=== PATIENT | female | born 1980 | race Caucasian/White ===

== ENCOUNTER 2018-12-16 05:27 | Emergency (ER) | payer BC, SELFPAY ==
[2018-12-16] MEDS ORDERED: MORPHINE 4 MG/ML SYR ONE ×2 (07:00→09:14)
[2018-12-16] MEDS ORDERED: PROMETHAZINE 25 MG/ML VIAL ONE (07:06)
[2018-12-16 07:16] LABS: Absolute Lymphocytes (CBC) 1.7 K/uL (0.7-4.9); Basophils % 0.8 % (0-1.3); Eosinophils % 3.4 % (0-4.4); Hematocrit 38.7 % (36.0-45.0); Lymphocytes % 27.9 % (15.3-44.8); MPV 8.3 fL (7.6-11.3); Monocytes % 7.6 % (3.3-12.3); RBC Red Blood Cell Count 3.96 M/uL (3.86-4.86)
--- NOTE | 2018-12-16 07:24 | RAD REPORT ---
EXAM DESCRIPTION: US - Abdomen Exam Limited - 12/16/2018 7:11 am CLINICAL HISTORY: Abdominal pain COMPARISON: Ultrasound February 2012 FINDINGS: No gallstones, sludge or other abnormalities within the gallbladder lumen. There is no wal l thickening or pericholecystic fluid. No common duct stone or biliary tree dilatation identified. IMPRESSION: Normal gallbladder and biliary tree ultrasound.
[2018-12-16 07:28] LABS: Urine Blood NEGATIVE (NEG); Urine Glucose NEGATIVE (NEG); Urine Protein NEGATIVE (NEG); Urine Specific Gravity <1.005 (1.005-1.030)
[2018-12-16 07:48] LABS: ALT/SGPT 68 U/L (12-78); AST/SGOT 239 U/L (15-37); Albumin 3.3 g/dL (3.4-5.0); Alkaline Phosphatase 199 U/L (45-117); BUN Blood Urea Nitrogen 7 mg/dL (7-18); Bicarbonate 22 mmol/L (21-32); Bilirubin Direct 0.3 mg/dL (0-0.2); Bilirubin Total 0.8 mg/dL (0.2-1.0); Glucose Level 139 mg/dL (74-106); Lipase 901 U/L (73-393); Potassium 3.7 mmol/L (3.5-5.1); Protein, Total 6.8 g/dL (6.4-8.2); Sodium Level 136 mmol/L (136-145)
--- NOTE | 2018-12-16 09:46 | RAD REPORT ---
EXAM DESCRIPTION: CT - Abdomen Pelvis Wo Contrast - 12/16/2018 9:23 am CLINICAL HISTORY: Right-sided abdominal pain COMPARISON: Abdomen ultrasound same date TECHNIQUE: Axial [address] imaging of the abdomen and pelvis was performed without IV contrast. No IV contrast was given because of allergy, abnormal renal function, patient refusal or physician re quest. No oral contrast administered. All CT scans are performed using dose optimization technique as appropriate and may include automated exposure control or mA/KV adjustment according to patient size. FINDINGS: No suspicious findings in the lung bases. Mild hepatomegaly is present. Overall liver parenchymal attenuation is decreased relative to the sple en. There are geographic areas of even greater diminished attenuation. Pattern favors geographic fatt y infiltration with varying degrees of fatty infiltration. Full assessment is limited in the absence of contrast. No splenomegaly or focal splenic finding. Body and tail of the pancreas are normal and w ithout focal mass. There is a general fullness in the head of the pancreas with stranding and edema a djacent to the pancreatic head and adjacent to the duodenal C-loop. Gilbert of the duodenum are promine nt. Stranding and minimal fluid continue inferiorly along the anterior pararenal fascia. Gallbladder and biliary tree are also without suspicious finding. No hydronephrosis or suspicious renal mass. No significant adrenal finding. Isodense renal masses an d pyelonephritis cannot be excluded in the absence of IV contrast. The urinary bladder is without sig nificant finding. Uterus and ovaries show no suspicious findings. No gastric dilatation or gastric wall thickening. Jejunum and ileum show no acute findings. No acute colon process. No free air or pneumatosis. No other site of inflammatory stranding. No hernia, mass o r bulky lymphadenopathy. No suspicious bony findings. IMPRESSION: Edematous/inflammatory stranding involving the duodenal C-loop and head of the pancreas. No abscess, mass or surgically emergent finding. Findings may reflect pancreatitis or a duodenitis/duodenal ulcer disease. Correlation can be made wit h any clinical or laboratory findings for pancreatitis. Liver is prominent in size and there is a heterogeneous attenuation pattern that is probably a geogra phic pattern of varying degrees of fatty infiltration. However, in the absence of contrast, mass lesi on or abnormal enhancement patterns cannot be assessed. Full assessment is limited is the absence of IV contrast.
[2018-12-16] MEDS ORDERED: CIPROFLOXACIN 400mg IV 400 MG/200 ML BAG IV ONE (10:22)
[2018-12-16] MEDS ORDERED: METRONIDAZOLE 500mg IVPB 500 MG/100 ML BAG IV ONE (10:22)
[2018-12-16] MEDS ORDERED: NA CHLORIDE 0.9% 500 ML ONE (10:22)
--- NOTE | 2018-12-16 10:55 | ER ---
Nurse's Notes [facility] Name: Ava Alcantara Age: 38 yrs Sex: Female : 1980 Arrival Date: 12/16/2018 Time: 05:29 Bed 19 Private MD: Diagnosis: Acute pancreatitis;Duodenitis Presentation: 12/16 05:40 Presenting complaint: Patient states: "Intermittent right sided abdominal pain since a cc3 couple of days now. I also feel nauseated". Transition of care: patient was not received from another setting of care. Onset of symptoms is unknown. Risk Assessment: Do you want to hurt yourself or someone else? Patient reports no desire to harm self or others. Initial Sepsis Screen: Does the patient meet any 2 criteria? No. Patient's initial sepsis screen is negative. Does the patient have a suspected source of infection? Yes: Acute abdominal pain. Care prior to arrival: Medication(s) given: Ibuprofen at 0400H this morning. 05:40 Method Of Arrival: Ambulatory cc3 05:40 Acuity: MEL 3 cc3 Triage Assessment: 05:40 General: Appears in no apparent distress. uncomfortable, Behavior is calm, cooperative, cc3 appropriate for age. Pain: Complains of pain in right side abdomen Pain currently is 7 out of 10 on a pain scale. Quality of pain is described as aching. EENT: No signs and/or symptoms were reported regarding the EENT system. Neuro: Level of Consciousness is awake, alert, obeys commands, Oriented to person, place, time, situation, Appropriate for age. Cardiovascular: Denies chest pain, Capillary refill < 3 seconds Patient's skin is warm and dry. Respiratory: Airway is patent Respiratory effort is even, unlabored, Respiratory pattern is regular, symmetrical. GI: Abdomen is round non-distended. : No signs and/or symptoms were reported regarding the genitourinary system. Derm: Skin is intact, is healthy with good turgor, Skin is pink, warm \\T\\ dry. normal, noticed redness all over her face. Musculoskeletal: Circulation, motion, and sensation intact. Range of motion: intact in all extremities. 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 - Social history:: Smoking status: Patient uses tobacco products, smokes one-half pack cigarettes per day. - Ebola Screening: : No symptoms or risks identified at this time. Screenin:40 Abuse screen: Denies threats or abuse. Denies injuries from another. Nutritional cc3 screening: No deficits noted. Tuberculosis screening: No symptoms or risk factors identified. Fall Risk Ambulatory Aid- None/Bed Rest/Nurse Assist (0 pts). Gait- Normal/Bed Rest/Wheelchair (0 pts) Mental Status- Oriented to own ability (0 pts). Assessment: 05:40 General: see triage assessment. cc3 06:30 Reassessment: Patient appears in no apparent distress at this time. Patient and/or cc3 family updated on plan of care and expected duration. Pain level reassessed. Patient is alert, oriented x 3, equal unlabored respirations, skin warm/dry/pink. 07:00 Reassessment: Patient appears in no apparent distress at this time. Patient and/or cc3 family updated on plan of care and expected duration. Pain level reassessed. Patient is alert, oriented x 3, equal unlabored respirations, skin warm/dry/pink. Ultrasound being done by the plant health care technician at bedside. 07:00 Reassessment: RECD REPORT FROM NGUYEN LAWRENCE. 38YO WF P/W ABDOMINAL PAIN. U/S AT B/S AT bp THIS TIME. 07:13 Reassessment: U/S COMPLETED, RESULTS PENDING. bp 09:10 Reassessment: PT TO CT. bp 10:12 Reassessment: DISPO ON HOLD FOR IV ABX INFUSION. bp 10:56 Reassessment: D/C ON HOLD FOR ABX COMPLETION. bp 12:28 Reassessment: PT D/C HOME AMBULATORY WITH FAMILY, DX WITH PANCREATITIS AND DUODENITIS. bp 12:30 GI: Bowel sounds present X 4 quads. Abd is soft X 4 quads Abdomen is tender to bp palpation in right upper quadrant. Vital Signs: 05:40 BP 174 / 124; Pulse 98; Resp 19 S; Temp 98.6(O); Pulse Ox 100% on R/A; Weight 88.45 kg cc3 (R); Height 5 ft. 2 in. (157.48 cm) (R); Pain 7/10; 06:09 BP 147 / 102; Pulse 92; Resp 18 S; Pulse Ox 100% on R/A; cc3 07:00 BP 138 / 105; Pulse 85; Resp 16; Pulse Ox 100% ; bp 08:14 BP 156 / 106; Pulse 83; Resp 16; Pulse Ox 100% ; bp 10:03 BP 160 / 119; Pulse 81; Resp 16; Pulse Ox 99% ; bp 12:28 BP 161 / 103; Pulse 67; Resp 16; Temp 98; Pulse Ox 100% ; bp 05:40 Body Mass Index 35.67 (88.45 kg, 157.48 cm) cc3 ED Course: 05:29 Patient arrived in ED. ds1 05:40 Arm band placed on right wrist. Patient notified of wait time. cc3 05:40 Patient has correct armband on for positive identification. Bed in low position. Call cc3 light in reach. Side rails up X 1. Pulse ox on. NIBP on. 05:44 Nguyen Lopez is Primary Nurse. cc3 05:51 Triage completed. cc3 06:05 Garo Brizuela PA is PHCP. jr8 06:05 Rad Liz MD is Attending Physician. jr8 07:00 Report given to HOWARD Lam. cc3 07:00 Inserted saline lock: 20 gauge in left antecubital area, using aseptic technique. Blood cc3 collected. 07:04 US Abdomen Limited In Process Unspecified. EDMS 07:09 Genaro Fernandez, RN is Primary Nurse. bp 09:24 CT Abd/Pelvis - Without Contrast In Process Unspecified. EDMS 10:54 Rodri Fabian MD is Referral Physician. jr8 12:28 No provider procedures requiring assistance completed. IV discontinued, intact, bp bleeding controlled, No redness/swelling at site. Pressure dressing applied. Administered Medications: 06:47 CANCELLED (Other Intervention Used): Zofran 4 mg IVP once; over 2 minutes cc3 07:00 Drug: morphine 4 mg Route: IVP; Site: left antecubital; cc3 08:55 Follow up: Response: Nausea is decreased bp 07:05 Drug: Phenergan 12.5 mg Route: IVP; Site: left antecubital; cc3 08:55 Follow up: Response: Nausea is decreased bp 09:01 Drug: morphine 4 mg Route: IVP; Site: right antecubital; bp 09:59 Follow up: Response: Pain is decreased bp 10:05 Drug: Flagyl 500 mg Volume: 100 ml; Route: IVPB; Rate: 200 ml/hr; Infused Over: 30 bp mins; Site: left antecubital; 10:55 Follow up: IV Status: Completed infusion bp 10:56 Drug: Cipro 400 mg Volume: 200 ml; Route: IVPB; Infused Over: 60 mins; Site: left bp antecubital; 12:29 Follow up: IV Status: Completed infusion; IV Intake: 200ml bp 11:13 Drug: Loraine (7.5 mg-325 mg) 1 tabs Route: PO; bp 12:29 Follow up: Response: No adverse reaction bp Intake: 12:29 IV: 200ml; Total: 200ml. bp Outcome: 10:55 Discharge ordered by MD. nesbitt 12:30 Discharged to home ambulatory, with family. bp 12:30 Condition: stable 12:30 Discharge instructions given to patient, Instructed on discharge instructions, follow up and referral plans. medication usage, Demonstrated understanding of instructions, follow-up care, medications, Prescriptions given X 4. 12:31 Patient left the ED. bp Signatures: Dispatcher [employer] EDNH Piper Vicente ds1 Garo Brizuela PA PA jr8 Genaro Fernandez, HOWARD RN bp Nguyen Lopez cc3
--- NOTE | 2018-12-16 10:55 | EDPHYS ---
Physician Documentation [facility] Name: Ava Alcantara Age: 38 yrs Sex: Female : 1980 Arrival Date: 12/16/2018 Time: 05:29 Bed 19 Private MD: ED Physician Rad Liz HPI: 12/16 06:45 This 38 yrs old Female presents to ER via Ambulatory with complaints of jr8 Abdominal Pain. 06:45 The patient presents with abdominal pain in the right upper quadrant. Onset: The jr8 symptoms/episode began/occurred gradually, 5 day(s) ago, and became worse today, yesterday. The symptoms radiate to abdomen. Associated signs and symptoms: Pertinent positives: nausea, Pertinent negatives: anorexia, blood in stools, chest pain, constipation, diarrhea, dysuria, fever, hematuria, vaginal discharge, vomiting. The symptoms are described as crampy, waxing/waning. Modifying factors: The symptoms are alleviated by nothing, the symptoms are aggravated by movement, pressure. Severity of pain: At its worst the pain was moderate in the emergency department the pain is actually worse is a 8 / 10. The patient has not experienced similar symptoms in the past. The patient has not recently seen a physician. RUQ abd pain x 5 days, worse x 2 days. Was relieved by ibuprofen previously but not yesterday/today. 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 - Social history:: Smoking status: Patient uses tobacco products, smokes one-half pack cigarettes per day. - Ebola Screening: : No symptoms or risks identified at this time. ROS: 06:45 Constitutional: Negative for fever, chills, and weight loss, Eyes: Negative for injury, jr8 pain, redness, and discharge, ENT: Negative for injury, pain, and discharge, Neck: Negative for injury, pain, and swelling, Cardiovascular: Negative for chest pain, palpitations, and edema, Respiratory: Negative for shortness of breath, cough, wheezing, and pleuritic chest pain, Back: Negative for injury and pain, : Negative for injury, bleeding, discharge, and swelling, MS/Extremity: Negative for injury and deformity, Skin: Negative for injury, rash, and discoloration, Neuro: Negative for headache, weakness, numbness, tingling, and seizure. 06:45 Abdomen/GI: Positive for abdominal pain, nausea, Negative for vomiting, diarrhea, constipation, anorexia, rectal pain, rectal bleeding. Exam: 06:45 Constitutional: This is a well developed, well nourished patient who is awake, alert, jr8 and in no acute distress. Head/Face: Normocephalic, atraumatic. Eyes: Pupils equal round and reactive to light, extra-ocular motions intact. Lids and lashes normal. Conjunctiva and sclera are non-icteric and not injected. Cornea within normal limits. Periorbital areas with no swelling, redness, or edema. Neck: Trachea midline, no thyromegaly or masses palpated, and no cervical lymphadenopathy. Supple, full range of motion without nuchal rigidity, or vertebral point tenderness. No Meningismus. Cardiovascular: Regular rate and rhythm with a normal S1 and S2. No gallops, murmurs, or rubs. Normal PMI, no JVD. No pulse deficits. Respiratory: Lungs have equal breath sounds bilaterally, clear to auscultation and percussion. No rales, rhonchi or wheezes noted. No increased work of breathing, no retractions or nasal flaring. Back: No spinal tenderness. No costovertebral tenderness. Full range of motion. Skin: Warm, dry with normal turgor. Normal color with no rashes, no lesions, and no evidence of cellulitis. MS/ Extremity: Pulses equal, no cyanosis. Neurovascular intact. Full, normal range of motion. Neuro: Awake and alert, GCS 15, oriented to person, place, time, and situation. Cranial nerves II-XII grossly intact. Motor strength 5/5 in all extremities. Sensory grossly intact. Cerebellar exam normal. Normal gait. 06:45 Abdomen/GI: Exam negative for guarding, Inspection: abdomen appears normal, obese Bowel sounds: normal, in all quadrants, Palpation: soft, moderate abdominal tenderness, in the right upper quadrant, no appreciated organomegaly, Indicators: Alvarado's sign is negative. Vital Signs: 05:40 BP 174 / 124; Pulse 98; Resp 19 S; Temp 98.6(O); Pulse Ox 100% on R/A; Weight 88.45 kg cc3 (R); Height 5 ft. 2 in. (157.48 cm) (R); Pain 7/10; 06:09 BP 147 / 102; Pulse 92; Resp 18 S; Pulse Ox 100% on R/A; cc3 07:00 BP 138 / 105; Pulse 85; Resp 16; Pulse Ox 100% ; bp 08:14 BP 156 / 106; Pulse 83; Resp 16; Pulse Ox 100% ; bp 10:03 BP 160 / 119; Pulse 81; Resp 16; Pulse Ox 99% ; bp 12:28 BP 161 / 103; Pulse 67; Resp 16; Temp 98; Pulse Ox 100% ; bp 05:40 Body Mass Index 35.67 (88.45 kg, 157.48 cm) cc3 MDM: 06:06 Patient medically screened. jr8 10:02 Data reviewed: vital signs, nurses notes, lab test result(s), radiologic studies, CT jr8 scan, ultrasound. Data interpreted: Pulse oximetry: on room air is 100 %. Interpretation: normal. Counseling: I had a detailed discussion with the patient and/or guardian regarding: the historical points, exam findings, and any diagnostic results supporting the discharge/admit diagnosis, lab results, radiology results, the need for outpatient follow up, a family practitioner, a wrapper selector, to return to the emergency department if symptoms worsen or persist or if there are any questions or concerns that arise at home. ED course: Reviewed labs and imaging with patient and family. Explained to them that patient has duodenitis and pancreatitis. Patient has never had either in the past. Recommend admission for IV fluids, antibiotics, and pain management to insure condition does not worsen. Patient stated that she wants to try home medication first and refuses to be admitted. Explained to patient that she runs the risk of perforation or worsening of infection/inflammation. Patient understands that but still wants to try outpatient therapy first. Family tried to convince patient to stay as well but still wants to go home. Patient knows to return if worse. 12/16 06:33 Order name: Basic Metabolic Panel 12/16 06:33 Order name: CBC with Diff 12/16 06:33 Order name: Creatinine for Radiology; Complete Time: 07:41 12/16 06:33 Order name: Hepatic Function; Complete Time: 08:40 12/16 06:33 Order name: Lipase; Complete Time: 08:40 12/16 06:33 Order name: Test, Serum; Complete Time: 08:40 12/16 06:33 Order name: US Abdomen Limited; Complete Time: 07:28 12/16 06:34 Order name: Basic Metabolic Panel; Complete Time: 08:40 EDMS 12/16 06:34 Order name: CBC with Automated Diff; Complete Time: 07:28 EDMS 12/16 06:34 Order name: Urine Dipstick--Ancillary (enter results); Complete Time: 07:28 ak5 12/16 08:49 Order name: CT Abd/Pelvis - Without Contrast; Complete Time: 09:53 12/16 06:33 Order name: IV Saline Lock; Complete Time: 07:08 12/16 06:33 Order name: Labs collected and sent; Complete Time: 07:08 Administered Medications: 06:47 CANCELLED (Other Intervention Used): Zofran 4 mg IVP once; over 2 minutes cc3 07:00 Drug: morphine 4 mg Route: IVP; Site: left antecubital; cc3 08:55 Follow up: Response: Nausea is decreased bp 07:05 Drug: Phenergan 12.5 mg Route: IVP; Site: left antecubital; cc3 08:55 Follow up: Response: Nausea is decreased bp 09:01 Drug: morphine 4 mg Route: IVP; Site: right antecubital; bp 09:59 Follow up: Response: Pain is decreased bp 10:05 Drug: Flagyl 500 mg Volume: 100 ml; Route: IVPB; Rate: 200 ml/hr; Infused Over: 30 bp mins; Site: left antecubital; 10:55 Follow up: IV Status: Completed infusion bp 10:56 Drug: Cipro 400 mg Volume: 200 ml; Route: IVPB; Infused Over: 60 mins; Site: left bp antecubital; 12:29 Follow up: IV Status: Completed infusion; IV Intake: 200ml bp 11:13 Drug: [place] (7.5 mg-325 mg) 1 tabs Route: PO; bp 12:29 Follow up: Response: No adverse reaction bp Disposition: 22:22 Co-signature as Attending Physician, Rad Liz MD Available for consultation at ps1 all times. . Disposition: 12/16/18 10:55 Discharged to Home. Impression: Acute pancreatitis, Duodenitis. - Condition is Stable. - Discharge Instructions: Acute Pancreatitis, Duodenitis. - Prescriptions for Cipro 500 mg Oral Tablet - take 1 tablet by ORAL route every 12 hours for 10 days; 20 tablet. Flagyl 500 mg Oral Tablet - take 1 tablet by ORAL route every 6 hours for 10 days; 40 tablet. Tylenol- Codeine #3 300-30 mg Oral Tablet - take 2 tablets by ORAL route every 6 hours As needed; 20 tablet. Zofran ODT 4 mg Oral tablet,disintegrating - place 1 tablet by TRANSLINGUAL route every 6 hours As needed; 12 tablet. - Medication Reconciliation Form, Thank You Letter, Antibiotic Education, Prescription Opioid Use form. - Follow up: Rodri Fabian MD; When: 1 week; Reason: Recheck today's complaints, Continuance of care, Re-evaluation by your physician. - Problem is new. - Symptoms have improved. Signatures: Dispatcher [employer] EDMS Garo Brizuela PA PA jr8 Genaro Fernandez, RN RN bp Rad Liz MD MD ps1 Nguyen Lopez cc3 Corrections: (The following items were deleted from the chart) 06:47 06:34 Zofran 4 mg IVP once; over 2 minutes ordered. jr8 cc3 06:47 06:46 Zofran 4 mg IVP once; over 2 minutes ordered. cc3 cc3 12:31 10:55 12/16/2018 10:55 Discharged to Home. Impression: Acute pancreatitis; Duodenitis. bp Condition is Stable. Forms are Medication Reconciliation Form, Thank You Letter, Antibiotic Education, Prescription Opioid Use. Follow up: Rodri Fabian; When: 1 week; Reason: Recheck today's complaints, Continuance of care, Re-evaluation by your physician. Problem is new. Symptoms have improved. jr8
[2018-12-16] MEDS ORDERED: HYDROCODONE/APAP 7.5/325 MG TAB ONE (11:28)
[2018-12-16 13:36] VITALS: BP 132/72; TEMP 97.8; O2SAT 98
== END 2018-12-16 12:31 | disposition home or self-care (01) ==
LOC: ER 05:27
DX: K85.90 Acute pancreatitis without necrosis or infection, unspecified (principal); K29.80 Duodenitis without bleeding; F17.210 Nicotine dependence, cigarettes, uncomplicated; I10 Essential (primary) hypertension; Z88.1 Allergy status to other antibiotic agents; Z91.048 Other nonmedicinal substance allergy status
CPT/HCPCS: 36415; 74176; 76705; 80048; 80076; 81003; 83690; 84703; 85025; 99284; J0744; J2550

== ENCOUNTER 2018-12-16 19:38 | Inpatient (IN) | payer SELFPAY ==
--- NOTE | 2018-12-16 20:28 | RAD REPORT ---
EXAM DESCRIPTION: RAD - Chest Single View - 12/16/2018 8:19 pm CLINICAL HISTORY: DYSPNEA Chest pain. COMPARISON: <Comparisons> FINDINGS: Portable technique limits examination quality. The lungs are grossly clear. The heart is normal in size. No displaced fractures. IMPRESSION: No acute intrathoracic process suspected.
[2018-12-16] MEDS ORDERED: ONDANSETRON 4 MG/2 ML VIAL ONE (20:46)
[2018-12-16] MEDS ORDERED: NA CHLORIDE 0.9% 2,000 ML ONE (20:46)
[2018-12-16] MEDS ORDERED: MEPERIDINE HCL 50 MG/ML AMP ONE (20:46)
[2018-12-16 20:47] LABS: Absolute Lymphocytes (CBC) 1.1 K/uL (0.7-4.9); Basophils % 0.7 % (0-1.3); Hematocrit 47.8 % (36.0-45.0); Lymphocytes % 11.3 % (15.3-44.8); MPV 8.1 fL (7.6-11.3); RBC Red Blood Cell Count 4.75 M/uL (3.86-4.86)
[2018-12-16 21:03] LABS: Albumin 3.4 g/dL (3.4-5.0); Bilirubin Total 2.8 mg/dL (0.2-1.0); Potassium 3.8 mmol/L (3.5-5.1); Protein, Total 7.5 g/dL (6.4-8.2)
--- NOTE | 2018-12-16 22:02 | ER ---
Nurse's Notes [facility] Name: Ava Alcantara Age: 38 yrs Sex: Female : 1980 Arrival Date: 12/16/2018 Time: 19:39 Bed 8 Private MD: Diagnosis: Acute pancreatitis. Worsening abdominal pain Presentation: 12/16 19:54 Presenting complaint: Patient states: Seen here this morning for same complaint. Pt tl2 states that she was told to come back if pain got worse. Pt states pain in entire abdomen and back and vomiting. Took two [place] at 1600 today. Transition of care: patient was not received from another setting of care. Onset of symptoms was December 16, 2018. Risk Assessment: Do you want to hurt yourself or someone else? Patient reports no desire to harm self or others. Initial Sepsis Screen: Does the patient meet any 2 criteria? HR > 90 bpm. Does the patient have a suspected source of infection? No. Patient's initial sepsis screen is negative. Care prior to arrival: None. 19:54 Method Of Arrival: Ambulatory tl2 19:54 Acuity: MEL 3 tl2 Triage Assessment: 20:00 General: Appears in no apparent distress. uncomfortable, Behavior is calm, cooperative. tr5 Pain: Complains of pain in abdomen Pain does not radiate. Pain currently is 8 out of 10 on a pain scale. Quality of pain is described as crampy. EENT: No signs and/or symptoms were reported regarding the EENT system. 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 Cardiovascular: Heart tones present Bruits absent Capillary refill < 3 seconds Pulses are all present. Edema is absent. Respiratory: Airway is patent Trachea midline Breath sounds are clear bilaterally. GI: Abdomen is flat, Bowel sounds present X 4 quads. Abd is soft Abdomen is tender to palpation Reports intolerance of food, nausea, vomiting. : No signs and/or symptoms were reported regarding the genitourinary system. Derm: No signs and/or symptoms reported regarding the dermatologic system. Skin is intact, Skin is dry, Skin is pink, warm \T\ dry. Skin temperature is warm. Musculoskeletal: Capillary refill < 3 seconds. 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 - Social history:: Smoking status: Patient uses tobacco products, smokes one-half pack cigarettes per day. - Ebola Screening: : No symptoms or risks identified at this time. Screenin:56 Abuse screen: Denies threats or abuse. Nutritional screening: No deficits noted. tl2 Tuberculosis screening: No symptoms or risk factors identified. Fall Risk None identified. Assessment: 20:54 Reassessment: Patient appears in no apparent distress at this time. Patient and/or tr5 family updated on plan of care and expected duration. Pain level reassessed. Patient is alert, oriented x 3, equal unlabored respirations, skin warm/dry/pink. 21:19 Reassessment: Patient appears in no apparent distress at this time. Patient and/or tr5 family updated on plan of care and expected duration. Pain level reassessed. Patient is alert, oriented x 3, equal unlabored respirations, skin warm/dry/pink. 22:06 Reassessment: Patient appears in no apparent distress at this time. Patient and/or tr5 family updated on plan of care and expected duration. Pain level reassessed. Patient is alert, oriented x 3, equal unlabored respirations, skin warm/dry/pink. 23:00 Reassessment: Patient appears in no apparent distress at this time. Patient and/or tr5 family updated on plan of care and expected duration. Pain level reassessed. Patient is alert, oriented x 3, equal unlabored respirations, skin warm/dry/pink. Vital Signs: 19:55 BP 139 / 104; Pulse 118; Resp 20; Temp 98(O); Pulse Ox 100% on R/A; Weight 87.54 kg; tl2 Height 5 ft. 2 in. (157.48 cm); Pain 10/10; 21:00 BP 112 / 97; Pulse 116; Resp 20; Pulse Ox 100% on R/A; aa1 22:30 BP 117 / 83; Pulse 115; Resp 18; Temp 98.2; Pulse Ox 99% on R/A; Pain 5/10; aa1 19:55 Body Mass Index 35.30 (87.54 kg, 157.48 cm) tl2 ED Course: 19:39 Patient arrived in ED. as 19:46 Joel Mitchell MD is Attending Physician. pkl 19:47 Yoandy Lopez RN is Primary Nurse. tr5 19:55 Triage completed. tl2 19:55 Arm band placed on right wrist. tl2 19:57 Patient has correct armband on for positive identification. Placed in gown. Bed in low tl2 position. Call light in reach. Side rails up X 1. Adult w/ patient. 20:21 XRAY CXR (1 view) In Process Unspecified. EDMS 20:40 Inserted saline lock: 22 gauge in left hand, using aseptic technique. ar5 22:00 Vasu Summers MD is Hospitalizing Provider. pkl 22:30 transfer. tr5 22:46 No provider procedures requiring assistance completed. Patient admitted, IV remains in tr5 place. Administered Medications: 20:41 Drug: NS 0.9% 1000 ml Route: IV; Rate: 1000 ml; Site: left hand; tr5 21:20 Follow up: Response: No adverse reaction; IV Status: Completed infusion tr5 20:41 Drug: Demerol 50 mg Route: IVP; Site: left hand; tr5 21:20 Follow up: Response: Pain is decreased tr5 20:41 Drug: Zofran 4 mg Route: IVP; Site: left hand; tr5 21:19 Follow up: Response: Nausea is decreased tr5 22:06 Drug: NS 0.9% 1000 ml Route: IV; Rate: 125 ml/hr; Site: left hand; tr5 22:09 Follow up: IV Status: Infusion continued upon admission aa1 22:15 Drug: morphine 4 mg Route: IVP; Site: left hand; tr5 22:48 Follow up: Response: Pain is decreased tr5 Outcome: 22:01 Decision to Hospitalize by Provider. pkl 22:46 Admitted to Med/surg accompanied by tech. tr5 22:46 Condition: stable 22:46 Instructed on the need for transfer. 23:19 Patient left the ED. tr5 Signatures: Dispatcher [employer] EDKathi Jameson RN RN aa1 Joel Mitchell MD MD pkl Martinez, Amelia as Knox, Taylor, RN RN tl2 Linh Rodriguez Tommie, RN RN tr5
--- NOTE | 2018-12-16 22:02 | EDPHYS ---
Physician Documentation [facility] Name: Ava Alcantara Age: 38 yrs Sex: Female : 1980 Arrival Date: 12/16/2018 Time: 19:39 Bed 8 Private MD: ED Physician Joel Mitchell HPI: 12/16 20:11 This 38 yrs old Female presents to ER via Ambulatory with complaints of pkl Abdominal Pain, Shortness Of Breath. 20:11 The patient presents with abdominal pain that is diffuse. Onset: The symptoms/episode pkl began/occurred 4 day(s) ago, and became worse today. The symptoms do not radiate. Associated signs and symptoms: Pertinent positives: shortness of breath. The patient has been recently seen at the [facility] Emergency Department, today, for similar complaints Advised hospitalization earlier today. Patient declined admission, wanted to try outpatient treatment first. Patient said pain is now worse and now wanted to be admitted.. 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 - Social history:: Smoking status: Patient uses tobacco products, smokes one-half pack cigarettes per day. - Ebola Screening: : No symptoms or risks identified at this time. ROS: 20:11 Eyes: Negative for injury, pain, redness, and discharge, ENT: Negative for injury, pkl pain, and discharge, Neck: Negative for injury, pain, and swelling, Cardiovascular: Negative for chest pain, palpitations, and edema, Respiratory: Negative for shortness of breath, cough, wheezing, and pleuritic chest pain. 20:11 Abdomen/GI: Positive for abdominal pain, nausea and vomiting. 20:11 Back: Negative for acute changes. 20:11 : Negative for urinary symptoms. 20:11 MS/extremity: Negative for acute changes. 20:11 Skin: Negative for rash. 20:11 Neuro: Negative for altered mental status. Exam: 20:11 Head/Face: Normocephalic, atraumatic. Eyes: Pupils equal round and reactive to light, pkl extra-ocular motions intact. Lids and lashes normal. Conjunctiva and sclera are non-icteric and not injected. Cornea within normal limits. Periorbital areas with no swelling, redness, or edema. ENT: Nares patent. No nasal discharge, no septal abnormalities noted. Tympanic membranes are normal and external auditory canals are clear. Oropharynx with no redness, swelling, or masses, exudates, or evidence of obstruction, uvula midline. Mucous membranes moist. Neck: Trachea midline, no thyromegaly or masses palpated, and no cervical lymphadenopathy. Supple, full range of motion without nuchal rigidity, or vertebral point tenderness. No Meningismus. Chest/axilla: Normal chest wall appearance and motion. Nontender with no deformity. No lesions are appreciated. Cardiovascular: Regular rate and rhythm with a normal S1 and S2. No gallops, murmurs, or rubs. Normal PMI, no JVD. No pulse deficits. Respiratory: Lungs have equal breath sounds bilaterally, clear to auscultation and percussion. No rales, rhonchi or wheezes noted. No increased work of breathing, no retractions or nasal flaring. 20:11 Abdomen/GI: Bowel sounds: normal, Palpation: moderate abdominal tenderness, in all quadrants. 20:11 Back: Exam negative for acute changes. 20:11 : Exam negative for acute changes. 20:11 Musculoskeletal/extremity: Exam is negative for acute changes. 20:11 Skin: Exam negative for rash. 20:11 Neuro: Orientation: is normal, Mentation: is normal, Cranial nerves: grossly normal, Motor: is normal. Vital Signs: 19:55 BP 139 / 104; Pulse 118; Resp 20; Temp 98(O); Pulse Ox 100% on R/A; Weight 87.54 kg; tl2 Height 5 ft. 2 in. (157.48 cm); Pain 10/10; 21:00 BP 112 / 97; Pulse 116; Resp 20; Pulse Ox 100% on R/A; aa1 22:30 BP 117 / 83; Pulse 115; Resp 18; Temp 98.2; Pulse Ox 99% on R/A; Pain 5/10; aa1 19:55 Body Mass Index 35.30 (87.54 kg, 157.48 cm) tl2 MDM: 19:46 Patient medically screened. pkl 22:00 Data reviewed: vital signs, nurses notes, lab test result(s), radiologic studies, plain pkl films. 12/16 20:09 Order name: Basic Metabolic Panel; Complete Time: 21:31 pkl 12/16 20:09 Order name: CBC with Diff; Complete Time: : pkl 12/16 20:09 Order name: Creatinine for Radiology; Complete Time: :31 pkl 12/16 20:09 Order name: Hepatic Function; Complete Time: :31 pkl 12/16 20:09 Order name: Lipase; Complete Time: : pkl 12/16 22:12 Order name: CBC with Automated Diff [facility] 12/16 22:12 Order name: CBC with Automated Diff [facility] 12/16 22:12 Order name: Comprehensive Metabolic Panel [facility] 12/16 22:12 Order name: Comprehensive Metabolic Panel [facility] 12/16 22:12 Order name: Protime (+INR) [facility] 12/16 22:12 Order name: Protime (+INR) [facility] 12/16 22:12 Order name: PTT, Activated Partial Thromb [facility] 12/16 22:12 Order name: PTT, Activated Partial Thromb [facility] 12/16 22:12 Order name: ABG Arterial Blood Gas; Complete Time: 01:17 [facility] 12/16 20:09 Order name: IV Saline Lock; Complete Time: 20:40 pk 12/16 20:09 Order name: Labs collected and sent; Complete Time: 20:40 pk 12/16 20:09 Order name: XRAY CXR (1 view); Complete Time: 21:31 pk 12/16 22:12 Order name: CONS Pharmacy Consult [facility] 12/16 22:12 Order name: CONS Physician Consult [facility] 12/16 22:12 Order name: NPO [facility] 12/16 22:12 Order name: Lipase [facility] Administered Medications: 20:41 Drug: NS 0.9% 1000 ml Route: IV; Rate: 1000 ml; Site: left hand; tr5 21:20 Follow up: Response: No adverse reaction; IV Status: Completed infusion tr5 20:41 Drug: Demerol 50 mg Route: IVP; Site: left hand; tr5 21:20 Follow up: Response: Pain is decreased tr5 20:41 Drug: Zofran 4 mg Route: IVP; Site: left hand; tr5 21:19 Follow up: Response: Nausea is decreased tr5 22:06 Drug: NS 0.9% 1000 ml Route: IV; Rate: 125 ml/hr; Site: left hand; tr5 22:09 Follow up: IV Status: Infusion continued upon admission aa1 22:15 Drug: morphine 4 mg Route: IVP; Site: left hand; tr5 22:48 Follow up: Response: Pain is decreased tr5 Disposition: 12/16/18 22:01 Hospitalization ordered by Vasu Summers for Inpatient Admission. Preliminary diagnosis is Acute pancreatitis. Worsening abdominal pain. - Bed requested for Telemetry/MedSurg (Inpatient). - Status is Inpatient Admission. tr5 - Condition is Stable. - Problem is new. - Symptoms are unchanged. UTI on Admission? No Signatures: Dispatcher [employer] EDMS Mckenna Rankin RN RN Joel Mitchell MD MD pkl Harmony Calderón RN RN tl2 Yoandy Lopez RN RN tr5 Kathi Solitario RN aa1 Corrections: (The following items were deleted from the chart) 22:19 22:01 Hospitalization Ordered by Vasu Summers MD for Inpatient Admission. Preliminary diagnosis is Acute pancreatitis. Worsening abdominal pain. Bed requested for Telemetry/MedSurg (Inpatient). Status is Inpatient Admission. Condition is Stable. Problem is new. Symptoms are unchanged. UTI on Admission? No. pkl 23:19 22:19 12/16/2018 22:01 Hospitalization Ordered by Vasu Summers MD for Inpatient tr5 Admission. Preliminary diagnosis is Acute pancreatitis. Worsening abdominal pain. Bed requested for Telemetry/MedSurg (Inpatient). Status is Inpatient Admission. Condition is Stable. Problem is new. Symptoms are unchanged. UTI on Admission? No. mw
[2018-12-16] MEDS ORDERED: ACETAMINOPHEN 500 MG TAB PO PRN (22:03)
[2018-12-16] MEDS ORDERED: MORPHINE 4 MG/ML SYR ONE (22:28)
[2018-12-16 22:33] LABS: Arterial Blood Carboxyhemoglob 2.1 % (0-1.5); Blood Gas Oxyhemoglobin 94.5 % (94-97); Blood O2 Saturation 97.6 % (92-98.5)
[2018-12-16] MEDS ORDERED: D5W 1,000 ML with NA BICARB 8.4% 50 MEQ IV SCH ×2 (23:00)
[2018-12-17 01:27] VITALS: BMI 35.3
[2018-12-17] MEDS: MORPHINE 2 MG/ML SYR IV PRN ×5 (01:31→22:10)
[2018-12-17] MEDS: ONDANSETRON 4 MG/2 ML VIAL IV PRN ×3 (01:31→20:50)
[2018-12-17 06:16] LABS: Absolute Lymphocytes (CBC) 1.6 K/uL (0.7-4.9); Basophils % 0.8 % (0-1.3); Lymphocytes % 17.5 % (15.3-44.8); RBC Red Blood Cell Count 4.66 M/uL (3.86-4.86)
[2018-12-17 06:25] LABS: Protime INR 1.22
[2018-12-17 06:32] LABS: Albumin 2.6 g/dL (3.4-5.0); Potassium 4.6 mmol/L (3.5-5.1); Protein, Total 6.1 g/dL (6.4-8.2)
[2018-12-17 06:36] LABS: Bilirubin Total 5.1 mg/dL (0.2-1.0)
[2018-12-17] MEDS ORDERED: NA CHLORIDE 0.9% 1,000 ML IV ONE (06:50)
[2018-12-17] MEDS ORDERED: CALCIUM GLUC 10% INJ 9.3 MEQ in NA CHLORIDE 0.9% 100 ML IV ONE (06:50)
[2018-12-17] MEDS ORDERED: D5W 1,000 ML with NA BICARB 8.4% 50 MEQ IV SCH ×2 (07:00)
[2018-12-17 07:04] LABS: Bilirubin Direct 3.1 mg/dL (0-0.2)
--- NOTE | 2018-12-17 07:10 | P.HP ---
Certification for Inpatient Patient admitted to: Inpatient With expected LOS: >2 Midnights Patient will require the following post-hospital care: None Practitioner: I am a practitioner with admitting privileges, knowledge of patient current condition, hospital course, and medical plan of care. Services: Services provided to patient in accordance with Admission requirements found in Title 42 Section 412.3 of the Code of Federal Regulations Patient History Date of Service: 12/16/18 Reason for admission: Acute pancreatitis/elevated bilirubin History of Present Illness: Patient is a 38yo who was admitted to the hospital with elevated lipase level. Patient had been drinking quite a bit over the last few weeks. Patient started having abdominal pain, nausea, and vomiting. Patient came into the emergency room for evaluation. She was found to have elevated lipase. Patient left initially, but since the pain was worsened she came back into the emergency room for reassessment. Patient was admitted for the hospital with acute pancreatitis. She has been given aggressive IV hydration. Will do a MRCP to rule out choledocholithiasis. Patient also needs to be monitored for DTs his she has a heavy drinker. Alcohol is probably the main etiology of her pancreatitis. But with her bilirubin being elevated we need to make sure is it is not obstructive jaundice as well. Allergies iodine Allergy (Severe, Verified 12/16/18 23:49) Anaphylaxis sulfamethoxazole [From Bactrim] Adverse Reaction (Intermediate, Verified 23:49) Nausea/Vomiting trimethoprim [From Bactrim] Adverse Reaction (Intermediate, Verified 12/16/18 23 :49) Nausea/Vomiting Home Medications: Carvedilol [Coreg] 12.5 mg PO BID 12/17/18 Esomeprazole Mag Trihydrate [Nexium] 20 mg PO DAILY 12/17/18 Fluticasone [Flonase 50MCG Nasal [place]*] 1 spray DOLLY DAILY 12/17/18 - Past Medical/Surgical History Has patient received pneumonia vaccine in the past: No Diabetic: No -: hypertension -: GERD -: alcohol Past Surgical History: Patient denies surgical history - Family History Mother History Unknown: Yes - Social History Smoking Status: Current every day smoker Alcohol use: Yes CD- Drugs: No Caffeine use: No Place of Residence: Home Review of Systems 10-point ROS is otherwise unremarkable Physical Examination - Vital Signs Temperature: 96.9 F Blood Pressure: 100/62 Pulse: 114 Respirations: 20 Pulse Ox (%): 100 - Physical Exam General: Alert, In no apparent distress, Oriented x3 HEENT: Atraumatic, PERRLA, Mucous membr. moist/pink, EOMI, Sclerae nonicteric Neck: Supple, 2+ carotid pulse no bruit, No LAD, Without JVD or thyroid abnormality Respiratory: Clear to auscultation bilaterally, Normal air movement Cardiovascular: Regular rate/rhythm, Normal S1 S2, No murmurs Gastrointestinal: Normal bowel sounds, Soft and benign, Non-distended, No rebound, Tenderness, Guarding Musculoskeletal: No clubbing, No swelling, No tenderness Integumentary: No rashes Neurological: Normal gait, Normal speech, Normal strength at 5/5 x4 extr, Normal tone, Sensation intact, Cranial nerves 3-12 intact, Normal affect Lymphatics: No axilla or inguinal lymphadenopathy - Studies Laboratory Data (last 24 hrs) 12/16/18 20:37: Creatinine 0.84 12/16/18 20:37: WBC 9.9 D, Hgb 15.7 H, Hct 47.8 H D, Plt Count 217 12/16/18 20:37: Sodium 129 L, Potassium 3.8, BUN 6 L, Creatinine 0.88, Glucose 165 H, Total Bilirubin 2.8 H, AST 189 H, ALT 84 H, Alkaline Phosphatase 200 H, Lipase 4646 H Assessment & Plan - Problems (Diagnosis) (1) Acute pancreatitis Current Visit: Yes Status: Acute (2) Alcohol abuse Current Visit: Yes Status: Acute (3) Elevated bilirubin Current Visit: Yes Status: Acute (4) Metabolic acidosis Current Visit: Yes Status: Acute - Plan 1. Continue with IV hydration 2. Continue with IV antibiotics 3. Continue with pain control 4. NPO 5. GI consultation; MRCP pending; evaluate for necrosis as well 6. Monitor CBC, BMP, LFTs and lipase along with electrolytes. 7. GI and DVT prophylaxis Discharge Plan: Home Plan to discharge in: Greater than 2 days - Advance Directives Does patient have a Living Will: No Does patient have a Durable POA for Healthcare: No - Code Status/Comfort Care Code Status Assessed: Yes Code Status: Full Code Critical Care: No Time Spent Managing PTS Care (In Minutes): 45
[2018-12-17] MEDS ORDERED: NA CHLORIDE 0.9% 500 ML IV ONE ×2 (08:33→08:37)
[2018-12-17] MEDS ORDERED: LORazepam 2 MG/ML VIAL IV ONE (08:33)
[2018-12-17] MEDS ORDERED: NA CHLORIDE 0.9% 1,000 ML IV SCH (12:00)
[2018-12-17 12:20] LABS: HDL Cholesterol 14 mg/dL (40-60); LDL Cholesterol, Calculated ND (<130)
[2018-12-17 12:32] LABS: LDL, Direct 29 mg/dL (100-129)
--- NOTE | 2018-12-17 13:09 | P.PN ---
Subjective Date of Service: 12/17/18 Chief Complaint: Acute pancreatitis/elevated bilirubin Patient seen and examined at bedside with RN. Chart reviewed. Case discussed with nephrology, GI, general surgery at this time. Patient denies having any nausea vomiting. Does admit to taking alcoholic drink every day. Last drink on Saturday. Denies having any abdominal pain at this time as well. States that morphine has been helping her a lot. Review of Systems 10-point ROS is otherwise unremarkable Physical Examination - Vital Signs Temperature: 97.0 F Blood Pressure: 105/61 Pulse: 108 Respirations: 18 Pulse Ox (%): 99 - Physical Exam General: Alert, In no apparent distress HEENT: Atraumatic, PERRLA, EOMI Neck: Supple, JVD not distended Respiratory: Clear to auscultation bilaterally, Normal air movement Cardiovascular: Regular rate/rhythm, Normal S1 S2 Gastrointestinal: Normal bowel sounds, No tenderness Musculoskeletal: Tenderness (Right upper quadrant pain) Integumentary: No rashes Neurological: Normal speech, Normal tone, Normal affect Lymphatics: No axilla or inguinal lymphadenopathy - Studies Laboratory Data (last 24 hrs) 12/16/18 20:37: Creatinine 0.84 12/16/18 20:37: WBC 9.9 D, Hgb 15.7 H, Hct 47.8 H D, Plt Count 217 12/16/18 20:37: Sodium 129 L, Potassium 3.8, BUN 6 L, Creatinine 0.88, Glucose 165 H, Total Bilirubin 2.8 H, AST 189 H, ALT 84 H, Alkaline Phosphatase 200 H, Lipase 4646 H Medications List Reviewed: Yes Assessment And Plan - Current Problems (Diagnosis) (1) Acute pancreatitis Current Visit: Yes Status: Acute Plan: Alcoholic acute pancreatitis versus gallstone induced pancreatitis -elevated lipase of over 4000 -started on IV fluids NS at 150 mL an hr -will monitor patient here closely -NPO at this time Qualifiers: Pancreatitis type: alcohol induced (2) Choledocholithiasis Current Visit: Yes Status: Acute Plan: Possible choledocholithiasis with elevated LFTs and elevated T bilirubin -MRCP is pending at this time -GI has been consulted. -will follow with MRCP results and GI consultation -IV antibiotics (3) Alcohol abuse Current Visit: Yes Status: Acute Plan: Patient drinks every day last drink was Saturday -CIWA protocol (4) Metabolic acidosis Current Visit: Yes Status: Acute Plan: METABOLIC ACIDOSIS WITH ACUTE KIDNEY INJURY -most likely secondary to acute pancreatitis versus alcohol abuse versus dehydration -replace fluids with an as 150 an hr -nephrology is consulted. Appreciate recommendation -will monitor patient closely - Plan Pending clinical improvement. Will follow up with MRCP results and follow up with GI and nephrology recommendations post MRCP results. Discharge Plan: Home Plan to discharge in: Greater than 2 days - Code Status/Comfort Care Code Status Assessed: Yes Critical Care: No
[2018-12-17] MEDS ORDERED: LORazepam 2 MG/ML VIAL IV PRN (13:12)
--- NOTE | 2018-12-17 14:23 | RAD REPORT ---
EXAM DESCRIPTION: MRICholangiogram12/17/2018 1:43 pm CLINICAL HISTORY: Abdominal pain COMPARISON: CT December 16, 2018 TECHNIQUE: Magnetic resonance cholangiogram was performed. Mip reconstruction performed FINDINGS: A filling defect within the gallbladder is not seen. Common bile duct measures 7 millimeters with smooth narrowing. A filling defect is not seen. Pancreas is enlarged and inhomogeneous. Ill-defined fluid is present within the right and left anteri or pararenal spaces. Fluid is also present the peripancreatic space. The pancreatic duct is not well visualized but does not appear dilated IMPRESSION: Pancreatitis Mild dilatation of the common bile duct with smooth narrowing perhaps indicates a stricture secondary to pancreatitis
[2018-12-17] MEDS: CIPROFLOXACIN 400mg IV 400 MG/200 ML BAG IV SCH ×2 (14:51→20:58)
--- NOTE | 2018-12-17 14:52 | RAD REPORT ---
EXAM DESCRIPTION: US - Renal Ultrasound-Complete - 12/17/2018 2:19 pm CLINICAL HISTORY: Acute renal insufficiency COMPARISON: None. FINDINGS: The right kidney measures 11 cm with mildly increased echotexture. The left kidney measures 12 cm with mildly increased echotexture. Hydronephrosis is not seen. Evaluation of bladder is limited as it is decompressed Small amount of ascites IMPRESSION: Mildly increased renal echotexture consistent with parenchymal disease
--- NOTE | 2018-12-17 16:55 | P.CNS ---
Date of Consult: 12/17/18 PC: This 38-year-old female presents emergency room with severe right upper quadrant abdominal pain for diagnosis and treatment. HPC: Patient had workup, shows she has cholecystitis with cholelithiasis probable choledocholithiasis. PMH: Negative PSHx: Negative SOC: Allergic to iodine, Bactrim and Flagyl SYS REVIEW: States he has otherwise been in good health O/E awake alert stable not in any distress abdomen HEENT: Clinically not jaundiced Chest: Chest movement equal bilaterally ABD: LOCO: Soft nontender DATA: Elevated lipase, MRCP shows common duct stone IMPRESSION: The patient will be evaluated for an ERCP. PLAN: Will follow with you
[2018-12-17 17:29] LABS: Absolute Lymphocytes (CBC) 1.3 K/uL (0.7-4.9); Basophils % 0.3 % (0-1.3); Hematocrit 42.3 % (36.0-45.0); Lymphocytes % 20.6 % (15.3-44.8); MPV 9.5 fL (7.6-11.3); RBC Red Blood Cell Count 4.18 M/uL (3.86-4.86)
[2018-12-17] MEDS: METRONIDAZOLE 500mg IVPB 500 MG/100 ML BAG IV SCH (17:30)
[2018-12-17 18:04] LABS: Blood Morphology Comment NOT SEEN (NOT SEEN); Platelet Estimate ADEQ
[2018-12-17 18:14] LABS: Albumin 2.4 g/dL (3.4-5.0); Potassium 4.3 mmol/L (3.5-5.1); Protein, Total 5.8 g/dL (6.4-8.2)
[2018-12-17 18:20] LABS: Bilirubin Total 6.6 mg/dL (0.2-1.0)
[2018-12-17] MEDS: CARVEDILOL 12.5 MG TAB PO SCH (20:47)
[2018-12-17] MEDS: PANTOPRAZOLE 40 MG INJ IVP SCH (20:50)
[2018-12-17] MEDS: Ringers Lactate 1,000 ML IV SCH (20:50)
[2018-12-18] MEDS: METRONIDAZOLE 500mg IVPB 500 MG/100 ML BAG IV SCH ×4 (00:08→16:43)
[2018-12-18 04:52] LABS: RBC Red Blood Cell Count 3.32 M/uL (3.86-4.86)
[2018-12-18 05:46] LABS: Albumin 2.1 g/dL (3.4-5.0); BUN Blood Urea Nitrogen 21 mg/dL (7-18); Bicarbonate 18 mmol/L (21-32); Ferritin 384.7 ng/mL (8-388); Folic Acid, (Folate) 19.3 ng/mL (3.1-17.5); Glucose Level 183 mg/dL (74-106); Phosphorus 2.8 mg/dL (2.5-4.9); Potassium 3.8 mmol/L (3.5-5.1); Sodium Level 130 mmol/L (136-145); Transferrin 117 mg/dL (200-360); Uric Acid 8.4 mg/dL (2.6-6.0)
[2018-12-18] MEDS ORDERED: CALCIUM GLUC 10% INJ 9.3 MEQ in NA CHLORIDE 0.9% 100 ML IV ONE ×2 (06:19→11:54)
[2018-12-18] MEDS: Ringers Lactate 1,000 ML IV SCH (06:22)
[2018-12-18 06:46] LABS: Arterial Blood Carboxyhemoglob 2.2 % (0-1.5); Blood Gas Oxyhemoglobin 93.1 % (94-97)
[2018-12-18 07:25] LABS: ALT/SGPT 34 U/L (12-78); AST/SGOT 104 U/L (15-37); Albumin 2.1 g/dL (3.4-5.0); Alkaline Phosphatase 89 U/L (45-117); BUN Blood Urea Nitrogen 22 mg/dL (7-18); Bicarbonate 19 mmol/L (21-32); Glucose Level 195 mg/dL (74-106); Potassium 3.7 mmol/L (3.5-5.1); Protein, Total 5.4 g/dL (6.4-8.2); Sodium Level 130 mmol/L (136-145)
--- NOTE | 2018-12-18 08:07 | P.PN ---
Date of Service: 12/18/18 Calcium level reported to be very low. Will repeat and also check ionized calcium level along with ABGs. If ionized calcium is normal then we should stop calcium infusion. Clinically patient does not seem to have a lot of signs of severe hypocalcemia. She actually looks better today than yesterday. If the ionized calcium is also very low then we need to cautiously correct patient' s calcium level in the setting of acute pancreatitis.
[2018-12-18] MEDS: CARVEDILOL 12.5 MG TAB PO SCH ×2 (08:19→22:54)
[2018-12-18] MEDS ORDERED: SODIUM CHLORIDE 0.9% 10ML INJ IV SCH (09:00)
[2018-12-18 09:03] LABS: Urine Appearance TURBID; Urine Blood 3+ (NEG); Urine Glucose TRACE (NEG); Urine Protein 1+ (NEG)
--- NOTE | 2018-12-18 09:08 | CON ---
Date of Consultation: 12/17/2018 Additional Referring Physician: Dr. Macario . Reason For Consultation: Elevated BUN and creatinine, acidosis. History Of Present Illness: This is a pleasant 38-year-old female with significant past medical history of hypertension, hyperlipidemia, SLE skin limted in the infertitlity testing 7 years ago according to her, limited to the skin . Patient was in her regular state of health, came to the hospital on the with abdominal pain, was found to have on the CAT scan and on the labs elevation of lipase and a picture of pancreatitis. Patient refused to be admitted. At that time, her kidney function was completely normal. Patient went home. Her symptoms got worse. For that reason, reported back. When she came back, the labs showed elevation in BUN and creatinine, worsening of her acidosis, and hyponatremia. Patient was admitted for acute pancreatitis. Patient was started on IV hydration. According to the patient, the patient is actively drinking 6 bottles of beer on a daily basis. Last drink was 2 days ago. Patient has been taking ibuprofen almost 6 tablets twice a day for the last few days. Patient denies taking any illicit drugs. No IV contrast the CT that was done without IV contrast. According to her, her urine output has been decreased. After starting the hydration, the patient just started peeing right now. Patient denied any rash on her body. Denied any other symptoms. Denied any current photosensitivity or any joint symptoms. Allergies: IODINE, SULFA, AND TRIMETHOPRIM. Home Medications: Carvedilol, esomeprazole, and breathing treatment. Past Medical History: 1. Hypertension. 2. GERD. 3. Active alcohol. 4. Lupus, skin limited. Family History: Positive for hypertension. Social History: Active drinker. Active smoking. Denies drug abuse. Review of Systems: Head and Neck: No red eye. No ear pain. GI: Has abdominal pain. Has nausea, vomiting. Has had diarrhea for the last 4 days, watery. : Decreased urine output. [employer]: Had vaginal menses currently. Respiratory: No shortness of breath. Cardiovascular: No leg swelling. Endocrine: No polydipsia. Skin: No rash. Neuro: No neuropathy. No weakness. Musculoskeletal: Generalized fatigue. Physical Examination: Vital Signs: When I saw the patient, blood pressure of 105/61, pulse of 108, afebrile. Chest: Clear to auscultation. Heart: S1, S2. Regular. Abdomen: Tender. Mild guarding. Extremities: No edema. Neuro: Alert, oriented x3. Nonfocal. Laboratory Data: WBC 6.1, H and H 13.4/42.3, platelets 152. On presentation, her H and H were 15.7/47.8. Sodium of 130, potassium 4.6, bicarb 15, chloride 98, BUN 10, creatinine 2, calcium 6.2. AST 169, ALT 61. Triglyceride 768. Lipase 1947. Urinalysis is still pending. Urine drug screen is still pending. Reviewing the record from the ER visit at that time on the : Kidney function was completely normal. Creatinine 0.8, GFR of 72. Urinalysis: Specific gravity 1.005. Assessment And Plan: 1. Acute kidney injury secondary to prerenal, superimposed with nonsteroidal use. Questionable given the acidosis, to rule out any possibility of Mehtyl gltycol toxecity . I am going to go ahead and send for alcohol level and send for osmolality on the serum, and we will send for full workup for the patient to rule out any autoimmune disease. I am going to continue the patient on aggressive hydration. We will monitor the patient. 2. Given thrombocytopenia, I am going to go ahead and send for an LDH and haptoglobin to rule out any hemolytic-uremic syndrome. Even I doubt it as the patient does not have any neurological symptoms. 3. Hyponatremia, mostly depletional. Continue hydration and we will monitor the patient. We will send for cortisol and TSH. 4. Acidosis secondary to renal failure. To rule out the possibility of Mehtyl gltycol toxecity. We are going to send for serum osmolality and we will follow up. I doubt that as the patient did not show any sign of it aggressively , suspecting it. 5. Pancreatitis, as by primary. 6. Colitis. I agree with current treatment. 7. Non-anion gap metabolic acidosis as above and possibly secondary to renal failure/diarrhea. We will follow up as above. I agree with the bicarb currently. Thank you, Dr. Macario, for allowing us to participate in the care of your patient. AMY Voice ID: [id number] Report ID: [id number] CONSTANTIN
[2018-12-18 09:41] LABS: Urine Bilirubin 2+ (NEG); Urine Color AMBER; Urine Microscopic Reflex ORDER UMIC
[2018-12-18 09:42] LABS: Urine Amorphous Sediment 2+ /HPF (NONE SEEN); Urine Bacteria <20 /HPF (<20); Urine Culture Reflex Order NOT NEEDED; Urine Mucus LIGHT /HPF (NONE SEEN); Urine RBC <5 /HPF (NONE SEEN)
[2018-12-18] MEDS: PANTOPRAZOLE 40 MG INJ IVP SCH ×2 (10:05→22:54)
[2018-12-18 10:56] LABS: Barbiturates NEGATIVE (NEGATIVE); Benzodiazepines NEGATIVE (NEGATIVE); Cocaine NEGATIVE (NEGATIVE); METHAMPHETAM NEGATIVE (NEGATIVE); Methadone NEGATIVE (NEGATIVE); Opiates POSITIVE (NEGATIVE); Phencyclidine NEGATIVE (NEGATIVE); THC Cannibis NEGATIVE (NEGATIVE)
[2018-12-18 11:02] LABS: Urine Protein/Creatinine Ratio 0.47 ratio (<0.15)
[2018-12-18] MEDS: CIPROFLOXACIN 400mg IV 400 MG/200 ML BAG IV SCH ×2 (11:16→22:53)
[2018-12-18 11:31] LABS: Absolute Lymphocytes (CBC) 0.7 K/uL (0.7-4.9); Basophils % 0.3 % (0-1.3); Hematocrit 31.4 % (36.0-45.0); Lymphocytes % 13.8 % (15.3-44.8); MPV 10.2 fL (7.6-11.3); RBC Red Blood Cell Count 3.17 M/uL (3.86-4.86)
[2018-12-18 11:36] LABS: Rheumatoid Factor NEG (NEG)
[2018-12-18 11:49] LABS: Albumin 2.1 g/dL (3.4-5.0); Bilirubin Total 4.1 mg/dL (0.2-1.0); Potassium 3.7 mmol/L (3.5-5.1); Protein, Total 5.5 g/dL (6.4-8.2)
[2018-12-18 11:52] LABS: Magnesium 0.9 mg/dL (1.8-2.4)
[2018-12-18] MEDS: MORPHINE 2 MG/ML SYR IV PRN (12:31)
--- NOTE | 2018-12-18 12:50 | P.PN ---
Subjective Date of Service: 12/18/18 Chief Complaint: Acute pancreatitis/elevated bilirubin Pt with HX of skin lupus, HX of alcohol abuse , HTN , HLD , presented with abd pain , refused admission, then presented with abd pain cr elevated from mormal to 2.X Today pain improved on opiated Cr slightly improved Low Mg and Ca , will reoplace Low Na will change fluid to NS F/u serology W/u agree with transfer eto ICU possible ERCP today Physical Examination - Vital Signs Temperature: 97.3 F Blood Pressure: 127/69 Pulse: 105 Respirations: 18 Pulse Ox (%): 94 - Physical Exam General: Alert, Oriented x3, Mild distress, Moderate distress HEENT: Atraumatic Neck: Supple, JVD not distended, Without JVD or thyroid abnormality Respiratory: Clear to auscultation bilaterally, Normal air movement Cardiovascular: No edema, Normal pulses, Regular rate/rhythm, Normal S1 S2, No gallops, No rubs, No murmurs Gastrointestinal: Normal bowel sounds, Tenderness Musculoskeletal: No clubbing, No swelling - Studies Medications List Reviewed: Yes Assessment And Plan - Current Problems (Diagnosis) (1) JOHN PAUL (acute kidney injury) Current Visit: Yes Status: Acute - Plan Acute kidney injury Likely prerenal from Acute pancreatitis Cr slightly improving will change fluid to NS US: no hydro , UA bld and UPC 0.4 US: no hydro F/U serology W/u HUS is less likely as Cr improving Acute pancreatits plan for ERCP hypomagnesemia and hypocalcemia due to pancreatitis replace Hyponatremia will switch fluid to NS HAGMA possibly due to JOHN PAUL Skin lupus stable s
--- NOTE | 2018-12-18 12:59 | P.PN ---
Subjective Date of Service: 12/18/18 Chief Complaint: Acute pancreatitis/elevated bilirubin Patient seen and examined at bedside with RN. Chart reviewed. Case discussed with nephrology, GI, general surgery at this time. Patient denies having any nausea vomiting. Does admit to taking alcoholic drink every day. Last drink on Saturday. Denies having any abdominal pain at this time as well. States that morphine has been helping her a lot. Review of Systems 10-point ROS is otherwise unremarkable Physical Examination - Vital Signs Temperature: 97.3 F Blood Pressure: 127/69 Pulse: 105 Respirations: 18 Pulse Ox (%): 94 - Physical Exam General: Alert, In no apparent distress HEENT: Atraumatic, PERRLA, EOMI Neck: Supple, JVD not distended Respiratory: Clear to auscultation bilaterally, Normal air movement Cardiovascular: Regular rate/rhythm, Normal S1 S2 Gastrointestinal: Normal bowel sounds, No tenderness Musculoskeletal: Tenderness (Generalized) Integumentary: No rashes Neurological: Normal speech, Normal tone, Normal affect Lymphatics: No axilla or inguinal lymphadenopathy - Studies Medications List Reviewed: Yes Assessment And Plan - Current Problems (Diagnosis) (1) Acute pancreatitis Current Visit: Yes Status: Acute Plan: Alcoholic acute pancreatitis versus gallstone induced pancreatitis -elevated lipase of over 4000 now on lipase trending down -On IV fluids NS at 150 mL an hr -NPO at this time -patient does have hypocalcemia along with hypomagnesium will replace appropriate Qualifiers: Pancreatitis type: alcohol induced Acute pancreatitis complication: unspecified Qualified Code(s): K85.20 - Alcohol induced acute pancreatitis without necrosis or infection (2) Choledocholithiasis Current Visit: Yes Status: Acute Plan: Possible choledocholithiasis with elevated LFTs and elevated T bilirubin -T bilirubin of 5.o LFT are trending down -MRCP positive for CBD dilation and possible gallstone versus stricture -GI has been consulted. Appreciated recommendations -ERCP has been scheduled for today. However endoscopic suite has been closed, will attempt to transfer and await for endoscopy to reopen. Whichever happens 1st -IV Cipro and Flagyl at this time (3) Alcohol abuse Current Visit: Yes Status: Acute Plan: Patient drinks every day last drink was Saturday -CIWA protocol (4) Metabolic acidosis Current Visit: Yes Status: Acute Plan: METABOLIC ACIDOSIS WITH ACUTE KIDNEY INJURY -most likely secondary to acute pancreatitis versus alcohol abuse versus dehydration -replace fluids with an as 150 an hr -nephrology is consulted. Appreciate recommendation -will monitor patient closely - Plan Pending clinical improvement. Will attempt to transfer or await ERCP to be done here at this hospital. Family at bedside notified regarding the plan. Discharge Plan: Home Plan to discharge in: Greater than 2 days - Code Status/Comfort Care Code Status Assessed: Yes Critical Care: No
[2018-12-18] MEDS ORDERED: MAGNESIUM 50% 3 GM in NA CHLORIDE 0.9% 100 ML IV ONE (13:26)
[2018-12-18 13:31] LABS: Blood Morphology Comment NOT SEEN (NOT SEEN); Platelet Estimate ADEQ
[2018-12-18] MEDS ORDERED: PROPOFOL 200 MG/20 ML VIAL IV ONE ×4 (17:59→18:29)
[2018-12-18] MEDS ORDERED: GENTAMICIN SULF 80 MG/2ML INJ IM ONE (18:12)
[2018-12-18] MEDS ORDERED: Ringers Lactate 0 ML IV ONE (18:12)
--- NOTE | 2018-12-18 18:25 | ENDO RPT ---
[address], [address] ERCP PROCEDURE REPORT EXAM DATE: 12/18/2018 PATIENT NAME: Ava Alcantara MR #: [id number] BIRTHDATE: 1980 ATTENDING: Rodri Fabian Dr STATUS: inpatient - 7 RUFFLER: Apple Montes De Oca, Vera Orr RN, and Edgar Porter RN INDICATIONS: The patient is a 38 yr old Female here for an ERCP due to abnormal imaging, abdominal pain, abnormal Liver Function Tests, and acute pancreatitis PROCEDURE PERFORMED: ERCP MEDICATIONS: Per Anesthesia. CONSENT: The patient understands the risks and benefits of the procedure and understands that these risks include, but are not limited to: sedation, allergic reaction, infection, perforation and/or bleeding. Alternative means of evaluation and treatment include, among others: physical exam, x-rays, and/or surgical intervention. The patient elects to proceed with this endoscopic procedure. DESCRIPTION OF PROCEDURE: During intra-op preparation period all mechanical medical equipment was checked for proper function. Hand hygiene and appropriate measures for infection prevention was taken. Procedure, possible complications, and alternatives including but not limited to the possibility of bleeding, perforation, tear, infection, sepsis, need for surgery, need for blood transfusion, and anesthesia related complications were explained to the patient. In addition, 5-30% incidence of acute pancreatitis as a result of ERCP were explained. After the risks, benefits and alternatives of the procedure were thoroughly explained, Informed was verified, confirmed and timeout was successfully executed by the treatment team. With the patient in left semi-prone position, medications were administered intravenously.The [id number] ([id number]) was passed from the mouth into the esophagus and further advanced from the esophagus into the stomach. From stomach scope was directed to the second portion of the duodenum. Major papilla was aligned with the duodenoscope. The scope position was confirmed fluoroscopically. Rest of the findings/therapeutics are given below. The scope was then completely withdrawn from the patient and the procedure completed. The pulse, BP, and O2 saturation were monitored and documented by the physician and the nursing staff throughout the entire procedure. The patient was cared for as planned according to standard protocol. The patient was then discharged to recovery in stable condition and with appropriate post procedure care. Marked edema / inflammation was found in the descending duodenum. Ampulla obscured by marked edema / inflammation was found in the descending duodenum. ADVERSE EVENT: none IMPRESSIONS: 1. Marked edema / inflammation in the descending duodenum 2. Ampulla obscured by marked edema / inflammation in the descending duodenum RECOMMENDATIONS: 1. NPO, continue IVFs 2. ICU monitoring REPEAT EXAM: Rodri Fabian Dr eSigned: Rodri Fabian Dr 12/18/2018 6:25 PM cc: CPT CODES: ICD9 CODES: PATIENT NAME: Ava Alcantara MR#: [id number]
[2018-12-18] MEDS ORDERED: MIDAZOLAM HCL 2 MG/2 ML INJ ONE (18:30)
--- NOTE | 2018-12-18 18:51 | RAD REPORT ---
EXAM DESCRIPTION: RAD - Fluoroscopy ERCP - 12/18/2018 6:39 pm CLINICAL HISTORY: Abdominal pain FINDINGS: Procedure performed by Dr. Fabian Four fluoroscopic spot images obtained. Fluoroscopy time 32 seconds Contrast is not visualized within the biliary tree. Please refer to the performing physician's notes for additional findings
[2018-12-18] MEDS: FOLIC ACID 1 MG, MULTIVITAMINS INJ 10 ML, THIAMINE HCL 100 MG in NA CHLORIDE 0.9% 1,000 ML IV SCH ×3 (18:53→20:18)
[2018-12-18] MEDS ORDERED: LORazepam 2 MG/ML VIAL IV PRN (18:59)
[2018-12-18] MEDS ORDERED: POTASSIUM PHOS IN 0.9 % NACL 15 MMOL/250 ML BAG IV ONE (19:01)
--- NOTE | 2018-12-18 22:29 | CON ---
Date of Consultation: 12/18/2018 Reason For Consultation: Pancreatitis with abnormal MRCP. History Of Present Illness: Patient is a 38-year-old white female with history of lupus, hypertension, gastroesophageal reflux disease, alcohol abuse. Patient came to the hospital with acute right upper quadrant midepigastric pain , generalizing with nausea, vomiting, jaundice, dark urine since Saturday, approximately 2 days ago. Patient denies any greasy or fatty foods that were especially out of the ordinary. She does, however, drink 6 to 8 beers per day over the past 2 years, increased recently as per chart review. MRCP revealed tapering of the common bile duct, which could be due to mass or pancreatitis or other. Past Medical History: Significant for: 1. Lupus. 2. Hypertension. 3. Gastroesophageal reflux disease. 4. Alcohol abuse. Medications: Home medications include Coreg, Nexium, and Flonase. Allergies: IODINE AND BACTRIM. Social History: She is . No children. One pack per day tobacco use. Alcohol, 6 to 8 beers per day. Beer of choice is [place] beer. She states she loves it. Review of Systems: Patient has midepigastric right upper quadrant pain with a generalized entire abdomen with nausea, vomiting, jaundice, dark urine since Saturday, 2 days ago. She denies any fevers, chills, night sweats, heat or cold intolerance, melena, hematochezia, hematemesis, coffee-grounds emesis, hematuria, dysuria, polydipsia. No anxiety noted. No depression reported by patient . No chest pain, shortness of breath, seizure, syncope, lower extremity edema, muscle aches, joint aches, backaches. She does have malar rash on her face including her nose and cheeks. Physical Examination: Vital Signs: Patient is 5 feet 2 inches, 192 pounds. BMI of 35.3 kg/sq m. Temperature is 97.8 degrees Fahrenheit, pulse 100, respirations 18 to 27, blood pressure 102/52, O2 saturation 99%. General: She is an obese female, lying in bed, in no acute distress. HEENT: Normocephalic, atraumatic. Pupils equal, round, and reactive to light. Pupils are jaundiced. Eyes are icteric. Oropharynx is clear. Neck: Supple. No masses. Lungs: Respirations clear to auscultation bilaterally. Cardiac: Regular rate and rhythm. No gallops or rubs. Gastrointestinal: Hyperactive bowel sounds. Soft and nondistended. Pain generalized. Obese abdomen. No peritoneal or Alvarado sign. No rebound. There is some guarding, however. Extremities: No clubbing, cyanosis. Trace edema. Neuro: Alert and oriented x3. Grossly nonfocal. 5/5 motor and sensation to light touch. Laboratory Data: Patient has a white count of 5.0 down from 9.9 on admission, hemoglobin 10.7 down from 15.7, hematocrit of 31 down from 47, MCV of 99, platelet count of 118 down from 217, polys of 76% down from 84%, lymphocytes 14% , monocytes 8%, eosinophils 2%. PT of 14.3, INR of 1.22, PTT of 30.1. She has sodium low at 129, potassium 3.7, chloride 100, bicarb 18, BUN of 23, creatinine of 2.4, glucose 212, calcium 5.5 up from less than 5 earlier this morning. Phosphorus of 2.0 is low. Magnesium at 0.9 is low. Iron saturation 9.8% is low. Ferritin is normal at 384.7. Total bilirubin is 4.1, down from 6.6 yesterday. AST of 91, ALT of 33, alkaline phosphatase of 89, total protein 5.5, albumin 2.1 cm. Triglycerides were elevated at 768, cholesterol 144, LDL 29, HDL 14. Lipase was initially 4646, down to 1160 yesterday. Folate is at 19.3. TSH is 3.32. Urine revealed 3+ blood, 2+ bilirubin, 1+ leukocyte esterase, 20 to 50 squamous epithelials with dirty urine. Tox screen was positive for opiates. Rheumatoid factor was negative. MRCP revealed mild dilatation of common bile duct with smooth tapering of the distal common bile duct indicative of mass or pancreatitis or other. Of note, the gallbladder had no stones or sludge noted in it. There was no definite filling defect noted in the biliary tree. Impression: 1. Pancreatitis, most likely alcoholic etiology with a history of alcohol abuse, increased recently. Triglycerides elevated to 768 indicative of her alcohol use as well. Patient with jaundice, dark urine, nausea, vomiting. Patient's MRCP is abnormal with tapering of the common bile duct distally. Could be due to inflammation, pancreatitis, mass or other. After discussion with other physicians, length assessment if possible. 2. Alcohol abuse, possible risk of delirium tremens in this patient. 3. Hyponatremia, sodium 129. Hypocalcemia, calcium of less than 5.0. Hypomagnesemia, magnesium of 0.9. Hypophosphatemia with phosphorus of 2.0. IV fluids run at 100 cc an hour with normal saline. We will need to increase resuscitation. 4. Protein-calorie malnutrition. Albumin 2.1. 5. Obesity. Recommendation: 1. Increase IV fluids. Use LR. We will need to go back to normal saline if hyponatremia persists. 2. Keep patient n.p.o. 3. Consider ERCP. 4. Alcohol Anonymous or rehab facility on discharge. 5. DT precaution. 6. Benzodiazepines p.r.n. 7. Thiamine and folate. The folate level on this testing was normal. 8. ICU monitoring with electrolyte repletion with hyponatremia, calcemia, magnesemia and phosphatemia all noted. Four electrolytes in the low range. KANIKA/LICHA Voice ID: [id number] Report ID: [id number] CONSTANTIN
[2018-12-19] MEDS: METRONIDAZOLE 500mg IVPB 500 MG/100 ML BAG IV SCH ×4 (01:13→18:00)
[2018-12-19] MEDS: MORPHINE 2 MG/ML SYR IV PRN (01:14)
[2018-12-19 06:42] LABS: Absolute Lymphocytes (CBC) 0.7 K/uL (0.7-4.9); Basophils % 0.3 % (0-1.3); Hematocrit 25.4 % (36.0-45.0); Lymphocytes % 17.2 % (15.3-44.8); MPV 9.3 fL (7.6-11.3); RBC Red Blood Cell Count 2.57 M/uL (3.86-4.86)
[2018-12-19 07:28] LABS: Albumin 1.9 g/dL (3.4-5.0); Bilirubin Total 3.2 mg/dL (0.2-1.0); Phosphorus 1.2 mg/dL (2.5-4.9); Potassium 3.4 mmol/L (3.5-5.1); Protein, Total 5.5 g/dL (6.4-8.2)
[2018-12-19] MEDS: CIPROFLOXACIN 400mg IV 400 MG/200 ML BAG IV SCH ×2 (07:58→21:21)
[2018-12-19] MEDS ORDERED: POTASSIUM PHOS IN 0.9 % NACL 15 MMOL/250 ML BAG IV ONE (08:00)
[2018-12-19] MEDS ORDERED: CALCIUM GLUC 10% INJ 9.3 MEQ in NA CHLORIDE 0.9% 100 ML IV ONE (08:56)
[2018-12-19] MEDS: FOLIC ACID 1 MG, MULTIVITAMINS INJ 10 ML, THIAMINE HCL 100 MG in NA CHLORIDE 0.9% 1,000 ML IV SCH (09:00)
[2018-12-19] MEDS: CARVEDILOL 12.5 MG TAB PO SCH ×2 (09:02→21:22)
[2018-12-19] MEDS: PANTOPRAZOLE 40 MG INJ IVP SCH ×2 (09:02→21:22)
[2018-12-19] MEDS ORDERED: GLUCAGON 1 MG/VIAL IM PRN (10:00)
[2018-12-19] MEDS ORDERED: D50W 25 GM/50 ML SYRINGE IV PRN (10:00)
[2018-12-19] MEDS ORDERED: D5W IV SCH (10:00)
[2018-12-19] MEDS ORDERED: CA GLUCO IV SCH (10:00)
--- NOTE | 2018-12-19 11:48 | P.PN ---
Subjective Date of Service: 12/19/18 Chief Complaint: Acute pancreatitis/elevated bilirubin Patient seen and examined at bedside with RN. Chart reviewed. Case discussed with nephrology, GI, general surgery at this time. Patient denies having any nausea vomiting. Does admit to taking alcoholic drink every day. Currently status post ERCP. No complaints to offer overnight. Review of Systems 10-point ROS is otherwise unremarkable Physical Examination - Vital Signs Temperature: 97.9 F Blood Pressure: 110/61 Pulse: 90 Respirations: 20 Pulse Ox (%): 100 - Physical Exam General: Alert, In no apparent distress HEENT: Atraumatic, PERRLA, EOMI Neck: Supple, JVD not distended Respiratory: Clear to auscultation bilaterally, Normal air movement Cardiovascular: Regular rate/rhythm, Normal S1 S2 Gastrointestinal: Normal bowel sounds, Tenderness Musculoskeletal: No tenderness Integumentary: No rashes Neurological: Normal speech, Normal tone, Normal affect Lymphatics: No axilla or inguinal lymphadenopathy - Studies Medications List Reviewed: Yes Assessment And Plan - Current Problems (Diagnosis) (1) Acute pancreatitis Current Visit: Yes Status: Acute Plan: Alcoholic acute pancreatitis versus gallstone induced pancreatitis -elevated lipase of over 4000 on admission, now on lipase trending down -currently status post ERCP POD day 1. With GI -ERCP consistent with edema in the duodenal and the ampullary region. -this morning patient continues to be on IV antibiotics and fluids -pain management as indicated -patient does have hypocalcemia along with hypomagnesium will replace appropriate Qualifiers: Pancreatitis type: alcohol induced Acute pancreatitis complication: unspecified Qualified Code(s): K85.20 - Alcohol induced acute pancreatitis without necrosis or infection (2) Choledocholithiasis Current Visit: Yes Status: Acute Plan: Possible choledocholithiasis with elevated LFTs and elevated T bilirubin -Tbilirubin of 3.1 today and LFT are trending down today -MRCP positive for CBD dilation and possible gallstone versus stricture -ERCP with increasing swelling edema in the duodenal in the axillary region -GI has been consulted. Appreciated recommendations -continue with IV fluids pain management -IV Cipro and Flagyl at this time (3) Alcohol abuse Current Visit: Yes Status: Acute Plan: Patient drinks every day last drink was Saturday -[place] protocol (4) Metabolic acidosis Current Visit: Yes Status: Acute Plan: METABOLIC ACIDOSIS WITH ACUTE KIDNEY INJURY -most likely secondary to acute pancreatitis versus alcohol abuse versus dehydration -replace fluids with an as 150 an hr -nephrology is consulted. Appreciate recommendation -will monitor patient closely - Plan Pending clinical improvement. Will monitor closely here in the ICU Discharge Plan: Home Plan to discharge in: Greater than 2 days - Code Status/Comfort Care Code Status Assessed: Yes Critical Care: Yes
[2018-12-19] MEDS: INSULIN -REGULAR HUMAN 50 UNIT/0.5 ML ML SQ SCH ×2 (12:28→17:56)
--- NOTE | 2018-12-19 15:53 | P.PN ---
Subjective Date of Service: 12/20/18 Chief Complaint: Acute pancreatitis/elevated bilirubin Subjective: Improving (Feels much better. Energetic. Tolerating ice chips. Says she is done with EtOH.) Review of Systems 10-point ROS is otherwise unremarkable Gastrointestinal: Abdominal Pain (improved. ) Physical Examination - Vital Signs Temperature: 97.9 F Blood Pressure: 118/71 Pulse: 104 Respirations: 20 Pulse Ox (%): 98 - Physical Exam General: Alert, In no apparent distress, Oriented x3, Cooperative HEENT: Atraumatic, Normocephalic, PERRLA, EOMI Neck: Supple Respiratory: Normal air movement Cardiovascular: Normal pulses Gastrointestinal: No rebound, No guarding, Tenderness Neurological: Normal speech, Normal strength at 5/5 x4 extr - Studies Medications List Reviewed: Yes Assessment And Plan - Current Problems (Diagnosis) (1) Abnormal magnetic resonance cholangiopancreatography (MRCP) Current Visit: Yes Status: Acute (2) Hypomagnesemia Current Visit: Yes Status: Acute (3) Hyponatremia Current Visit: Yes Status: Acute (4) Hypophosphatemia Current Visit: Yes Status: Acute (5) Hypocalcemia Current Visit: Yes Status: Acute (6) Protein calorie malnutrition Current Visit: Yes Status: Acute (7) Obesity (BMI 30-39.9) Current Visit: Yes Status: Acute (8) Acute pancreatitis Current Visit: Yes Status: Acute Qualifiers: Pancreatitis type: alcohol induced Acute pancreatitis complication: unspecified Qualified Code(s): K85.20 - Alcohol induced acute pancreatitis without necrosis or infection (9) Alcohol abuse Current Visit: Yes Status: Acute - Plan REC: 1) ice chips and water 2) advance slowly to clear liquid diet 3) continue IVFs and lyte repletion
[2018-12-19] MEDS ORDERED: MORPHINE 4 MG/ML SYR IV PRN (18:55)
--- NOTE | 2018-12-19 19:42 | P.PN ---
Subjective Date of Service: 12/19/18 Chief Complaint: Acute pancreatitis/elevated bilirubin Subjective: Improving Pt with HX of skin lupus, HX of alcohol abuse , HTN , HLD , presented with abd pain , refused admission, then presented with abd pain cr elevated from mormal to 2.X Today Cr down to normal Corrceted Ca 7.5, will start on Caclium drip S/P ERCP Physical Examination - Vital Signs Temperature: 97.5 F Blood Pressure: 120/68 Pulse: 91 Respirations: 24 Pulse Ox (%): 97 - Physical Exam General: In no apparent distress, Oriented x3 HEENT: Atraumatic Neck: Supple, Without JVD or thyroid abnormality Respiratory: Clear to auscultation bilaterally Cardiovascular: No edema, Normal pulses, Regular rate/rhythm, No gallops, No rubs, No murmurs Gastrointestinal: Normal bowel sounds, Soft and benign - Studies Medications List Reviewed: Yes Assessment And Plan - Current Problems (Diagnosis) (1) JOHN PAUL (acute kidney injury) Current Visit: Yes Status: Acute - Plan K Acute kidney injury resolved Likely prerenal from Acute pancreatitis Cr slightly improving US: no hydro , UA bld and UPC 0.4 F/U serology W/u HUS is unlikely as JOHN PAUL resolved Acute pancreatits S/P ERCP and CBD stone removal hypomagnesemia and hypocalcemia due to pancreatitis replace Skin lupus stable K
[2018-12-20] MEDS: METRONIDAZOLE 500mg IVPB 500 MG/100 ML BAG IV SCH ×5 (00:26→23:34)
[2018-12-20 02:04] LABS: BUN Blood Urea Nitrogen 5 mg/dL (7-18); Bicarbonate 23 mmol/L (21-32); Glucose Level 203 mg/dL (74-106); Potassium 3.3 mmol/L (3.5-5.1); Sodium Level 136 mmol/L (136-145)
[2018-12-20 02:09] LABS: Phosphorus 0.9 mg/dL (2.5-4.9)
[2018-12-20] MEDS ORDERED: POTASSIUM PHOS 30 MM in NA CHLORIDE 0.9% 500 ML IV ONE (02:13)
[2018-12-20] MEDS ORDERED: POTASSIUM PHOS IN 0.9 % NACL 30 MMOL/500 ML BAG IV ONE (03:34)
[2018-12-20] MEDS ORDERED: NA CHLORIDE 0.9% 500 ML ONE (03:39)
[2018-12-20 05:54] LABS: Albumin 1.9 g/dL (3.4-5.0); BUN Blood Urea Nitrogen 5 mg/dL (7-18); Bicarbonate 22 mmol/L (21-32); Glucose Level 193 mg/dL (74-106); Phosphorus 1.3 mg/dL (2.5-4.9); Potassium 3.5 mmol/L (3.5-5.1); Sodium Level 138 mmol/L (136-145)
[2018-12-20] MEDS ORDERED: CALCIUM GLUC 10% INJ 4.65 MEQ in NA CHLORIDE 0.9% 100 ML IV ONE (08:00)
[2018-12-20] MEDS: CIPROFLOXACIN 400mg IV 400 MG/200 ML BAG IV SCH ×2 (08:44→20:42)
[2018-12-20] MEDS: PANTOPRAZOLE 40 MG INJ IVP SCH ×2 (08:45→20:41)
[2018-12-20] MEDS: CARVEDILOL 12.5 MG TAB PO SCH ×2 (08:45→20:42)
[2018-12-20] MEDS: FOLIC ACID 1 MG, MULTIVITAMINS INJ 10 ML, THIAMINE HCL 100 MG in NA CHLORIDE 0.9% 1,000 ML IV SCH (09:00)
[2018-12-20 10:52] LABS: HIV AG/AB 4TH GEN Non-reactive (Non-reactive)
--- NOTE | 2018-12-20 11:54 | P.PN ---
Subjective Date of Service: 12/20/18 Chief Complaint: Acute pancreatitis/elevated bilirubin Patient seen and examined at bedside with RN. Chart reviewed. Case discussed with nephrology, GI, general surgery at this time. Patient denies having any nausea vomiting. Doing well overnight. No complaints to offer this morning. Wants to see if she can have some clear liquid diet today Review of Systems 10-point ROS is otherwise unremarkable Physical Examination - Vital Signs Temperature: 98.1 F Blood Pressure: 139/81 Pulse: 95 Respirations: 22 Pulse Ox (%): 96 - Physical Exam General: Alert, In no apparent distress HEENT: Atraumatic, PERRLA, EOMI Neck: Supple, JVD not distended Respiratory: Clear to auscultation bilaterally, Normal air movement Cardiovascular: Regular rate/rhythm, Normal S1 S2 Gastrointestinal: Normal bowel sounds, No tenderness Musculoskeletal: No tenderness Integumentary: No rashes Neurological: Normal speech, Normal tone, Normal affect Lymphatics: No axilla or inguinal lymphadenopathy - Studies Medications List Reviewed: Yes Assessment And Plan - Current Problems (Diagnosis) (1) Acute pancreatitis Current Visit: Yes Status: Acute Plan: Alcoholic acute pancreatitis versus gallstone induced pancreatitis -elevated lipase of over 4000 on admission, now on lipase trending down -currently status post ERCP POD day 2 With GI -ERCP consistent with edema in the duodenal and the ampullary region. -will continue on IV antibiotics Cipro and Flagyl and fluids -pain management as indicated -patient does have hypocalcemia along with hypomagnesium will replace appropriate Qualifiers: Pancreatitis type: alcohol induced Acute pancreatitis complication: unspecified Qualified Code(s): K85.20 - Alcohol induced acute pancreatitis without necrosis or infection (2) Choledocholithiasis Current Visit: Yes Status: Acute Plan: Possible choledocholithiasis with elevated LFTs and elevated T bilirubin -Tbilirubin trending down along with LFT -MRCP positive for CBD dilation and possible gallstone versus stricture -ERCP with increasing swelling edema in the duodenal in the axillary region -GI has been consulted. Appreciated recommendations -continue with IV fluids, IV antibiotics and pain management (3) Alcohol abuse Current Visit: Yes Status: Acute Plan: Patient drinks every day last drink was Saturday -[place] protocol (4) Metabolic acidosis Current Visit: Yes Status: Acute Plan: METABOLIC ACIDOSIS WITH ACUTE KIDNEY INJURY -most likely secondary to acute pancreatitis versus alcohol abuse versus dehydration -currently receiving IV fluids. Will advance patient's diet to a full liquid diet if doing well will decrease the fluid -nephrology is consulted. Appreciate recommendation -will monitor patient closely - Plan Pending clinical improvement. Will transfer patient to the regular floor today allowed her to have clear liquid diet. Will follow up with general surgery regarding further recommendations regarding possible surgical procedure versus outpatient procedure. Discharge Plan: Home Plan to discharge in: Greater than 2 days - Code Status/Comfort Care Code Status Assessed: Yes Critical Care: Yes
--- NOTE | 2018-12-20 15:19 | PN ---
Date of Progress Note: 12/20/2018 Subjective: Patient was admitted with acute kidney injury secondary to nonsteroidal normal volume wi th acute pancreatitis. Patient after hydration, kidney function has been improved significantly. [place] feeling better, started on liquid diet. Physical Examination: General: The patient lying in bed. Vital Signs: Blood pressure of 139/81, pulse of 95. Chest: Clear to auscultation. Heart: S1, S2. Regular. Abdomen: Soft, nontender. Extremities: No edema. Laboratory Data: H and H 8.7/25.4. Sodium of 138, potassium of 3.5, bicarb 22, BUN 5, creatinine 0. 5, calcium 6.5, phos 1.3, albumin 1.9, corrected calcium is 8.1. Current Medications: The patient is on are include; Cipro, metronidazole, calcium gluconate, carvedi lol, Zofran. Assessment And Plan: 1.Acute kidney injury, secondary to prerenal, superimposed with nonsteroidal use, will resolve. 2.Hypertension, controlled optimal. 3.Hypophosphatemia, hypokalemia. We will supplement. 4.Hypocalcemia. Follow up vitamin D level. I am going to start the patient on calcium carbonate an d we will follow up the patient. 5.Acute pancreatitis, as by Primary. KAN/LICHA Voice ID: [id number] Report ID: [id number]
--- NOTE | 2018-12-20 15:54 | P.PN ---
Subjective Date of Service: 12/20/18 Chief Complaint: Acute pancreatitis/elevated bilirubin Subjective: Improving (Feels even better today, stating her abdomen does not feel as hard. She is tolerating CLs.) Review of Systems 10-point ROS is otherwise unremarkable Gastrointestinal: Abdominal Pain (Improving. ) Physical Examination - Vital Signs Temperature: 97.9 F Blood Pressure: 118/71 Pulse: 104 Respirations: 20 Pulse Ox (%): 98 - Physical Exam General: Alert, In no apparent distress, Oriented x3, Cooperative HEENT: Atraumatic, Normocephalic, PERRLA, EOMI Neck: Supple Respiratory: Normal air movement Cardiovascular: Normal pulses Gastrointestinal: Soft and benign, No rebound, No guarding, Tenderness (Improved ) Neurological: Normal speech, Normal strength at 5/5 x4 extr - Studies Medications List Reviewed: Yes Assessment And Plan - Current Problems (Diagnosis) (1) Abnormal magnetic resonance cholangiopancreatography (MRCP) Current Visit: Yes Status: Acute (2) Hypomagnesemia Current Visit: Yes Status: Acute (3) Hyponatremia Current Visit: Yes Status: Acute (4) Hypophosphatemia Current Visit: Yes Status: Acute (5) Hypocalcemia Current Visit: Yes Status: Acute (6) Protein calorie malnutrition Current Visit: Yes Status: Acute (7) Obesity (BMI 30-39.9) Current Visit: Yes Status: Acute (8) Acute pancreatitis Current Visit: Yes Status: Acute Qualifiers: Pancreatitis type: alcohol induced Acute pancreatitis complication: unspecified Qualified Code(s): K85.20 - Alcohol induced acute pancreatitis without necrosis or infection (9) Alcohol abuse Current Visit: Yes Status: Acute - Plan REC: 1) clear liquid diet today, slow to advance unless labs today and tomorrow normal 2) check labs 3) continue IVFs
[2018-12-20 19:12] LABS: Hepatitis C Virus RNA (PCR)log <1.18 log IU/mL
[2018-12-20 20:29] LABS: HBsAG Nonreactive (Nonreactive)
[2018-12-20] MEDS: CALCIUM CARBONATE 500 MG TAB PO SCH (20:41)
[2018-12-20] MEDS: POTASS/SODIUM PHOSPHATE 1 PKT POWD.PACK PO SCH (20:42)
[2018-12-21 04:52] LABS: Albumin, (SPE) 2.3 g/dL (3.8-4.8); Alpha-1-Globulins 0.5 g/dL (0.2-0.3); Alpha-2-Globulins 0.6 g/dL (0.5-0.9); Gamma Globulins 0.7 g/dL (0.8-1.7); INTERPRETATION REPORT
[2018-12-21] MEDS: METRONIDAZOLE 500mg IVPB 500 MG/100 ML BAG IV SCH (05:07)
[2018-12-21 06:59] LABS: BUN Blood Urea Nitrogen 3 mg/dL (7-18); Bicarbonate 24 mmol/L (21-32); Glucose Level 204 mg/dL (74-106); Phosphorus 1.2 mg/dL (2.5-4.9); Sodium Level 137 mmol/L (136-145)
[2018-12-21 07:06] LABS: Potassium 2.9 mmol/L (3.5-5.1)
[2018-12-21] MEDS ORDERED: POTASSIUM PHOS 30 MM in NA CHLORIDE 0.9% 500 ML IV ONE (08:00)
[2018-12-21] MEDS: CIPROFLOXACIN 400mg IV 400 MG/200 ML BAG IV SCH (08:50)
[2018-12-21] MEDS: PANTOPRAZOLE 40 MG INJ IVP SCH (08:51)
[2018-12-21] MEDS: CALCIUM CARBONATE 500 MG TAB PO SCH ×3 (08:51→21:01)
[2018-12-21] MEDS: POTASS/SODIUM PHOSPHATE 1 PKT POWD.PACK PO SCH ×2 (08:52→21:00)
[2018-12-21] MEDS: CARVEDILOL 12.5 MG TAB PO SCH ×2 (08:55→21:00)
[2018-12-21] MEDS: FOLIC ACID 1 MG, MULTIVITAMINS INJ 10 ML, THIAMINE HCL 100 MG in NA CHLORIDE 0.9% 1,000 ML IV SCH (09:00)
[2018-12-21] MEDS ORDERED: CALCIUM GLUC 10% INJ 4.65 MEQ in NA CHLORIDE 0.9% 100 ML IV ONE (09:00)
[2018-12-21 09:14] VITALS: O2SAT 97
[2018-12-21] MEDS ORDERED: POTASSIUM CL SA 10 MEQ TAB PO ONE (10:56)
[2018-12-21] MEDS ORDERED: POTASSIUM CL 40 MEQ in NA CHLORIDE 0.9% 500 ML IV SCH (11:00)
[2018-12-21 11:42] LABS: Vitamin D 1,25-Dihydroxy Total 17 pg/mL (18-72); Vitamin D,1,25-OH2, D2 <8 pg/mL
[2018-12-21] MEDS: AMYLASE/LIPASE/PROTEASE CAP PO SCH ×3 (11:47→21:00)
--- NOTE | 2018-12-21 13:07 | P.PN ---
Subjective Date of Service: 12/21/18 Chief Complaint: Acute pancreatitis/elevated bilirubin Patient seen and examined at bedside with RN. Chart reviewed. Case discussed with nephrology, GI, general surgery at this time. Patient denies having any nausea vomiting. Doing well overnight. No complaints to offer this morning. Review of Systems 10-point ROS is otherwise unremarkable Physical Examination - Vital Signs Temperature: 97.1 F Blood Pressure: 141/82 Pulse: 97 Respirations: 16 Pulse Ox (%): 97 - Physical Exam General: Alert, In no apparent distress HEENT: Atraumatic, PERRLA, EOMI Neck: Supple, JVD not distended Respiratory: Clear to auscultation bilaterally, Normal air movement Cardiovascular: Regular rate/rhythm, Normal S1 S2 Gastrointestinal: Normal bowel sounds, No tenderness Musculoskeletal: No tenderness Integumentary: No rashes Neurological: Normal speech, Normal tone, Normal affect Lymphatics: No axilla or inguinal lymphadenopathy - Studies Medications List Reviewed: Yes Assessment And Plan - Current Problems (Diagnosis) (1) Acute pancreatitis Current Visit: Yes Status: Acute Plan: Alcoholic acute pancreatitis versus gallstone induced pancreatitis -elevated lipase of over 4000 on admission, now lipase trending down -currently status post ERCP POD day 3 With GI -ERCP consistent with edema in the duodenal and the ampullary region. -will continue on IV antibiotics Cipro and Flagyl and fluids -pain management as indicated -patient does have hypocalcemia along with hypomagnesium will replace appropriate Qualifiers: Pancreatitis type: alcohol induced Acute pancreatitis complication: unspecified Qualified Code(s): K85.20 - Alcohol induced acute pancreatitis without necrosis or infection (2) Choledocholithiasis Current Visit: Yes Status: Acute Plan: Possible choledocholithiasis with elevated LFTs and elevated T bilirubin -Tbilirubin trending down along with LFT -MRCP positive for CBD dilation and possible gallstone versus stricture -ERCP with increasing swelling edema in the duodenal in the axillary region -GI has been consulted. Appreciated recommendations -continue with IV fluids, IV antibiotics and pain management (3) Alcohol abuse Current Visit: Yes Status: Acute Plan: Patient drinks every day last drink was Saturday -[place] protocol (4) Metabolic acidosis Current Visit: Yes Status: Acute Plan: METABOLIC ACIDOSIS WITH ACUTE KIDNEY INJURY -most likely secondary to acute pancreatitis versus alcohol abuse versus dehydration -currently receiving IV fluids. Will advance patient's diet to a full liquid diet if doing well will decrease the fluid -nephrology is consulted. Appreciate recommendation -will monitor patient closely - Plan Pending clinical improvement. Discharge Plan: Home Plan to discharge in: Greater than 2 days - Code Status/Comfort Care Code Status Assessed: Yes Critical Care: No
--- NOTE | 2018-12-21 13:28 | P.PN ---
Subjective Date of Service: 12/21/18 Chief Complaint: Acute pancreatitis/elevated bilirubin Subjective: Improving (She reports no abdominal pain today and tolerating po.) Review of Systems Unremarkable Physical Examination - Vital Signs Temperature: 97.1 F Blood Pressure: 141/82 Pulse: 97 Respirations: 16 Pulse Ox (%): 97 - Physical Exam General: Alert, In no apparent distress, Oriented x3, Cooperative HEENT: Atraumatic, Normocephalic, PERRLA, EOMI Neck: Supple Respiratory: Diminished Cardiovascular: Normal pulses Gastrointestinal: Soft and benign, No tenderness, No rebound, No guarding Neurological: Normal speech, Normal strength at 5/5 x4 extr - Studies Medications List Reviewed: Yes Assessment And Plan - Current Problems (Diagnosis) (1) Abnormal magnetic resonance cholangiopancreatography (MRCP) Current Visit: Yes Status: Acute (2) Hypomagnesemia Current Visit: Yes Status: Acute (3) Hyponatremia Current Visit: Yes Status: Acute (4) Hypophosphatemia Current Visit: Yes Status: Acute (5) Hypocalcemia Current Visit: Yes Status: Acute (6) Protein calorie malnutrition Current Visit: Yes Status: Acute (7) Obesity (BMI 30-39.9) Current Visit: Yes Status: Acute (8) Acute pancreatitis Current Visit: Yes Status: Acute Comment: Improved. Qualifiers: Pancreatitis type: alcohol induced Acute pancreatitis complication: unspecified Qualified Code(s): K85.20 - Alcohol induced acute pancreatitis without necrosis or infection (9) Alcohol abuse Current Visit: Yes Status: Acute - Plan REC: 1) monitor labs 2) continue IVFs
[2018-12-21] MEDS: metroNIDAZOLE 500 MG TABLET PO SCH ×3 (14:02→21:00)
--- NOTE | 2018-12-21 14:44 | PN ---
Date of Progress Note: 12/21/2018 Subjective: Patient was admitted with acute pancreatitis, acute kidney injury secondary to prerenal, superimposed with nonsteroidal use. Patient recovered completely, but patient continued to have aleksandra rrhea with post ATN poly diuresis causing depletion on her electrolytes. Physical Examination: Vital Signs: Blood pressure 141/82, pulse of 97. The patient had good urine output. Chest: Clear to auscultation. Heart: S1, S2. Regular. Abdomen: Soft and nontender. Extremities: No edema. Laboratory Data: WBC 4.3, hemoglobin and hematocrit of 8.7 and 25.4, platelet 108. Sodium of 137, p otassium 2.9, bicarb 24, BUN 3, creatinine 0.4, calcium 7.5, phos 1.2, albumin of 2, corrected calciu m is 8. PTH within normal limit. Vitamin D still pending. Current Medications: The patient on its include calcium carbonate 1000 b.i.d., Cipro, metronidazole, carvedilol 12.5 b.i.d., folic acid, pantoprazole. Assessment And Plan: 1.Acute kidney injury secondary to prerenal, recovered, resolved. 2.Persistent hypokalemia. I am going to go ahead and continue nitroglycerin phos. We will suppleme nt aggressively. We will repeat magnesium level mostly it is secondary to the gastrointestinal loss and secondary and to post acute tubular necrosis. 3.Hypophosphatemia, mostly secondary to malnourished, secondary to alcohol superimposed with gastroi ntestinal loss. We will supplement aggressively. 4.Pancreatitis as by primary. 5.Diabetes as by primary. KAN/LICHA Voice ID: [id number] Report ID: [id number]
[2018-12-21] MEDS: PANTOPRAZOLE 40MG TABLET PO SCH (16:12)
[2018-12-21 18:31] LABS: Phosphorus 1.7 mg/dL (2.5-4.9); Potassium 3.1 mmol/L (3.5-5.1)
[2018-12-21] MEDS: CIPROFLOXACIN HCL 500 MG TAB PO SCH (21:00)
[2018-12-22 04:33] LABS: Absolute Lymphocytes (CBC) 0.9 K/uL (0.7-4.9); Basophils % 0.4 % (0-1.3); Hematocrit 22.9 % (36.0-45.0); Lymphocytes % 15.2 % (15.3-44.8); MPV 9.5 fL (7.6-11.3); RBC Red Blood Cell Count 2.31 M/uL (3.86-4.86)
[2018-12-22 04:45] LABS: ALT/SGPT 15 U/L (12-78); AST/SGOT 26 U/L (15-37); Albumin 1.9 g/dL (3.4-5.0); Alkaline Phosphatase 106 U/L (45-117); BUN Blood Urea Nitrogen 2 mg/dL (7-18); Bicarbonate 26 mmol/L (21-32); Bilirubin Direct 0.8 mg/dL (0-0.2); Bilirubin Total 1.1 mg/dL (0.2-1.0); Glucose Level 205 mg/dL (74-106); Lipase 89 U/L (73-393); Magnesium 1.9 mg/dL (1.8-2.4); Phosphorus 1.5 mg/dL (2.5-4.9); Protein, Total 5.7 g/dL (6.4-8.2); Sodium Level 137 mmol/L (136-145)
[2018-12-22] MEDS ORDERED: POTASSIUM CL SA 10 MEQ TAB PO ONE (05:54)
[2018-12-22] MEDS: POTASS/SODIUM PHOSPHATE 1 PKT POWD.PACK PO SCH ×4 (06:34→11:30)
[2018-12-22 08:06] LABS: Anisocytosis 2+; Blood Morphology Comment NOTED (NOT SEEN); Platelet Estimate ADEQ
[2018-12-22] MEDS: CIPROFLOXACIN HCL 500 MG TAB PO SCH (09:00)
[2018-12-22] MEDS: metroNIDAZOLE 500 MG TABLET PO SCH ×2 (09:00→13:00)
[2018-12-22] MEDS ORDERED: FOLIC ACID 1 MG TABLET PO SCH (09:00)
[2018-12-22] MEDS ORDERED: THIAMINE HCL 100 MG TABLET PO SCH (09:00)
[2018-12-22] MEDS ORDERED: MULTIVITAMIN TAB PO SCH (09:00)
[2018-12-22] MEDS: CALCIUM CARBONATE 500 MG TAB PO SCH ×2 (09:45→14:40)
[2018-12-22] MEDS: PANTOPRAZOLE 40MG TABLET PO SCH (09:46)
[2018-12-22] MEDS: AMYLASE/LIPASE/PROTEASE CAP PO SCH ×2 (09:47→11:34)
[2018-12-22] MEDS: CARVEDILOL 12.5 MG TAB PO SCH (09:47)
[2018-12-22 15:19] VITALS: BP 137/78; TEMP 97.6
--- NOTE | 2018-12-22 18:19 | P.DS ---
Admission Date: 12/16/18 Discharge Date: 12/22/18 Disposition: ROUTINE DISCHARGE Discharge Condition: GOOD Reason for Admission: Acute pancreatitis/elevated bilirubin Consultations: GI Procedures: ERCP - Problems (1) Acute pancreatitis Status: Acute Qualifiers: Pancreatitis type: alcohol induced Acute pancreatitis complication: unspecified Qualified Code(s): K85.20 - Alcohol induced acute pancreatitis without necrosis or infection (2) Choledocholithiasis Status: Acute (3) Alcohol abuse Status: Acute (4) Metabolic acidosis Status: Acute Brief History of Present Illness: Patient is a 38yo who was admitted to the hospital with elevated lipase level. Patient had been drinking quite a bit over the last few weeks. Patient started having abdominal pain, nausea, and vomiting. Patient came into the emergency room for evaluation. She was found to have elevated lipase. Patient left initially, but since the pain was worsened she came back into the emergency room for reassessment. Patient was admitted for the hospital with acute pancreatitis. She has been given aggressive IV hydration. Will do a MRCP to rule out choledocholithiasis. Patient also needs to be monitored for DTs his she has a heavy drinker. Alcohol is probably the main etiology of her pancreatitis. But with her bilirubin being elevated we need to make sure is it is not obstructive jaundice as well. Hospital Course: Overall during the hospital stay patient remained stable Patient was initially admitted to the hospital for acute pancreatitis most likely secondary to alcohol abuse. Abdominal CT and ultrasound were done. Abdominal CT was consistent with acute pancreatitis. Abdominal ultrasound was consistent with choledocholithiasis. GI was consulted. Patient had an MRCP which was positive for possible choledocholithiasis. ERCP was done and was found to have large amount of swelling in the duodenal and the ampullary region. Several stones were also removed. Patient was returned to the floor without any complication. Patient's lab work was monitored here for the next 24 -48 hr. Patient was kept NPO with IV fluids and IV antibiotics initially for acute pancreatitis and choledocholithiasis. Patient had marked improvement in her symptoms after the procedure and her diet was advanced to a clear liquid diet which then was advanced to a GI soft. Patient tolerated her diet well and thus was discharged home under stable condition. While here in the hospital patient also had electrolyte imbalance mainly hypocalcemia and hypomagnesemia. She was placed on electrolyte protocol and was transfused accordingly. Patient also had general surgery consulted who recommended that patient can have outpatient gallbladder removal surgery when she is more stable from the pancreatitis side. Patient was educated extensively regarding alcohol abuse and abstinence from alcohol. Patient demonstrated understanding and thus was discharged home under stable condition. Vital Signs/Physical Exam: Temp Pulse Resp BP Pulse Ox 97.6 F 99 H 16 137/78 96 12/22/18 12:00 12/22/18 12:00 12/22/18 12:00 12/22/18 12:00 12/22/18 12:00 General: Alert, In no apparent distress HEENT: Atraumatic, PERRLA, EOMI Neck: Supple, JVD not distended Respiratory: Clear to auscultation bilaterally, Normal air movement Cardiovascular: Regular rate/rhythm, Normal S1 S2 Gastrointestinal: Normal bowel sounds, No tenderness Musculoskeletal: No tenderness Integumentary: No rashes Neurological: Normal speech, Normal tone, Normal affect Lymphatics: No axilla or inguinal lymphadenopathy Laboratory Data at Discharge: WBC 6.1 K/uL (4.3-10.9) D 12/22/18 04:16 Hgb 8.2 g/dL (12.0-15.0) L 12/22/18 12:15 Hct 24.0 % (36.0-45.0) L 12/22/18 12:15 Plt Count 158 K/uL (152-406) D 12/22/18 04:16 PT 14.3 SECONDS (9.5-12.5) H 12/17/18 05:48 INR 1.22 12/17/18 05:48 APTT 30.1 SECONDS (24.3-36.9) 12/17/18 05:48 Sodium 137 mmol/L (136-145) 12/22/18 04:16 Potassium 3.0 mmol/L (3.5-5.1) L 12/22/18 04:16 BUN 2 mg/dL (7-18) L 12/22/18 04:16 Creatinine 0.47 mg/dL (0.55-1.3) L 12/22/18 04:16 Glucose 205 mg/dL (74-106) H 12/22/18 04:16 Uric Acid 8.4 mg/dL (2.6-6.0) H 12/18/18 04:07 Phosphorus 1.5 mg/dL (2.5-4.9) L 12/22/18 04:16 Magnesium 1.9 mg/dL (1.8-2.4) 12/22/18 04:16 Total Bilirubin 1.1 mg/dL (0.2-1.0) H 12/22/18 04:16 AST 26 U/L (15-37) 12/22/18 04:16 ALT 15 U/L (12-78) 12/22/18 04:16 Alkaline Phosphatase 106 U/L (45-117) 12/22/18 04:16 Triglycerides 768 mg/dL (<150) H 12/17/18 11:52 Cholesterol 144 mg/dL (<200) 12/17/18 11:52 LDL Cholesterol Direct 29 mg/dL (100-129) L 12/17/18 11:52 HDL Cholesterol 14 mg/dL (40-60) L 12/17/18 11:52 Cholesterol/HDL Ratio 10.29 12/17/18 11:52 Lipase 89 U/L (73-393) 12/22/18 04:16 Home Medications: Carvedilol [Coreg*] 12.5 mg PO BID 12/17/18 Esomeprazole Mag Trihydrate [Nexium] 20 mg PO DAILY 12/17/18 Fluticasone [Flonase 50MCG Nasal [place]*] 1 spray DOLLY DAILY 12/17/18 Calcium Carbonate [Oscal*] 1,000 mg PO TID #90 tab 12/22/18 Ciprofloxacin HCl 500 mg PO BID #28 tablet 12/22/18 Lipase/Protease/Amylase [Nancy Roy 12,000 Units Capsule] 1 cap PO BID #60 cap metroNIDAZOLE [Flagyl*] 500 mg PO QID #42 tablet 12/22/18 New Medications: Calcium Carbonate [Oscal*] 1,000 mg PO TID #90 tab Ciprofloxacin HCl 500 mg PO BID #28 tablet Lipase/Protease/Amylase [Nancy Roy 12,000 Units Capsule] 1 cap PO BID #60 cap metroNIDAZOLE [Flagyl*] 500 mg PO QID #42 tablet Diet: Regular Activity: Ad shekhar Followup: Josefa Rasmussen MD [ACTIVE - CAN ADMIT] - Dav Beyer MD [ACTIVE - CAN ADMIT] - Rodri Fabian MD [ASSOCIATE-ACTIVE - CAN ADMIT] -
--- NOTE | 2018-12-22 22:47 | PN ---
Date of Progress Note: 12/22/2018 Subjective: The patient is admitted for acute pancreatitis. The patient developed acute kidney inju ry secondary to prerenal azotemia with superimposed nonsteroidal use. The patient did not have acute interstitial nephritis. The patient currently is treated with IV fluids, received potassium replace ment. The patient developed polyuria with post ATN diuresis. The fluid balance has improved. Review of Systems: Denies fever, chills. Physical Examination: Lungs: Clear to auscultation bilaterally. Heart: S1, S2. Abdomen: Soft, benign. Extremities: No edema. Laboratory Data: Creatinine level is 0.4, BUN 3, potassium 2.9, hemoglobin 8.7. Impression And Plan: 1.Acute kidney injury in recovery phase. Continue adequate hydration. 2.Persistent hypokalemia. The patient will continue supplementation. The patient is recovering fro m acute kidney injury and has polyuria. 3.Hypophosphatemia. The patient will have replacement. 4.The patient has history of alcohol consumption and this was addressed by primary team. 5.Pancreatitis by primary team. 6.Diabetes mellitus. The patient is not a candidate for metformin. The patient needs to continue i nsulin. EB/MODL Voice ID: [id number] Report ID: [id number]
== END 2018-12-22 15:10 | disposition home or self-care (01) | DRG 439 ==
LOC: ER 19:38 → ERHOLD 22:56 → 4TH 23:01 → 3RD-ICU 12-18 13:41 → 2ND 12-20 16:30
PROVIDERS: ADMIT Hospitalist; ATTEND Family Medicine
PROC: BF101ZZ Fluoroscopy of Bile Ducts using Low Osmolar Contrast (ICD-10-PCS; 2018-12-18)
PROC: 0FJB8ZZ Inspection of Hepatobiliary Duct, Via Natural or Artificial Opening Endoscopic (ICD-10-PCS; principal; 2018-12-18 13:00)
DX: K85.20 Alcohol induced acute pancreatitis without necrosis or infection (principal); E87.2 Acidosis; N17.9 Acute kidney failure, unspecified; E87.1 Hypo-osmolality and hyponatremia; E46 Unspecified protein-calorie malnutrition; T39.395A Adverse effect of other nonsteroidal anti-inflammatory drugs [NSAID], initial encounter; K80.50 Calculus of bile duct without cholangitis or cholecystitis without obstruction; F10.10 Alcohol abuse, uncomplicated; F17.210 Nicotine dependence, cigarettes, uncomplicated; K21.9 Gastro-esophageal reflux disease without esophagitis; D69.6 Thrombocytopenia, unspecified; E83.51 Hypocalcemia; E83.42 Hypomagnesemia; M32.9 Systemic lupus erythematosus, unspecified; E11.9 Type 2 diabetes mellitus without complications; E66.9 Obesity, unspecified; E83.39 Other disorders of phosphorus metabolism; Z68.38 Body mass index [BMI] 38.0-38.9, adult; Z88.2 Allergy status to sulfonamides
CPT/HCPCS: 36415; 71045; 74181; 76770; 80048; 80053; 80061; 80069; 80076; 80307; 80320; 81003; 81015; 82248; 82310; 82330; 82533; 82570; 82652; 82728; 82746; 82805; 82962; 83010; 83520; 83540; 83615; 83690; 83735; 83930; 83935; 83970; 84100; 84132; 84156; 84165; 84443; 84466; 84550; 85014; 85018; 85025; 85044; 85610; 85730; 86021; 86038; 86160; 86225; 86317; 86430; 86704; 86706; 87340; 87389; 87493; 87522; 96361; 96374; 96375; 99285; C1769; C9113; J0610; J0744; J1580; J2175; J2250; J2270; J2405; J2704; J3411; J3475; J7030

== ENCOUNTER 2018-12-30 09:45 | Emergency (ER) | payer SELFPAY ==
--- OUTSIDE RECORDS SUMMARY | 2018-12-30 09:49 | XMS REPORT | Clinical Summary ---
:1980 Author Organization [facility] Address [address] [place] [address] Care Team Providers Name Role Phone Unavailable Primary Care Provider Unavailable Allergies Not on File Medications Not on file Active Problems Not on file Encounters Date Type Specialty Care Team Description 12/18/2018 Hospital Encounter after 12/29/2017 Social History Tobacco Use Types Packs/Day Years Used Date Never Assessed Sex Assigned at Date Recorded Not on file Job Start Date Occupation Industry Not on file Not on file Not on file Travel History Travel Start Travel End No recent travel history available. Last Filed Vital Signs Not on file Plan of Treatment Not on file Results Not on fileafter 12/29/2017
--- NOTE | 2018-12-30 10:51 | RAD REPORT ---
EXAM DESCRIPTION: US - UPPER EXTREMITY VENOUS UNILATE - 12/30/2018 10:43 am CLINICAL HISTORY: right neck swelling, eval for DVT of RUE Neck swelling COMPARISON: No comparisons FINDINGS: Right upper extremity venous system was interrogated with Doppler technique. Normal flow, compressibility and augmentation was noted. There is no DVT present. IMPRESSION: No evidence of right upper extremity deep venous thrombosis.
--- NOTE | 2018-12-30 10:58 | RAD REPORT ---
EXAM DESCRIPTION: CT - Soft Tissue Neck Wo Contr - 12/30/2018 10:45 am CLINICAL HISTORY: Right-sided facial swelling and pain TECHNIQUE: Axial noncontrast 3 millimeter thick images of the neck were obtained. All CT scans are performed using dose optimization technique as appropriate and may include automated exposure control or mA/KV adjustment according to patient size. FINDINGS: Limited intracranial portion the examination is unremarkable. Mastoid air cells and parana anabel sinuses are clear. No globe or orbital content abnormality. No pharyngeal mucosal mass. No laryngeal or epiglottic abnormality. Tonsils and tongue base show no s uspicious findings. Parapharyngeal fat is normal. The parotid, submandibular and thyroid gland tissue show no suspicious findings. There is extensive edematous and/ or inflammatory changes to the subcutaneous fatty tissues from the upper chest and right shoulder region superiorly into the right neck C3 level. There is additional edematous/ inflammatory stranding deep to the platysma in the mid and lower neck. Small amount of fluid is present. These deeper dentist/inflammatory changes abut the paraspinal musc ulature and abut the posterior and lateral margins of the carotid sheath. No abnormal lymphadenopathy . No air or foreign body in the soft tissues. No abscess or drainable fluid collections seen. No indwelling line is present. IMPRESSION: Extensive but non specific edematous/inflammatory signal in the fatty tissues of the mid and lower right neck, right shoulder and upper most chest. Edematous/inflammatory changes are both superficial and deep to the platysma. No abscess or drainable fluid collection. No air or foreign body in the soft tissues. No abnormal lymphadenopathy or focal soft tissue mass.
[2018-12-30] MEDS ORDERED: CLINDAMYCIN IV 150 MG/ML (4 mL) VIAL ONE (12:04)
[2018-12-30 12:32] LABS: Absolute Lymphocytes (CBC) 1.5 K/uL (0.7-4.9); Basophils % 0.7 % (0-1.3); Hematocrit 28.4 % (36.0-45.0); Lymphocytes % 16.4 % (15.3-44.8); MPV 9.8 fL (7.6-11.3); RBC Red Blood Cell Count 2.87 M/uL (3.86-4.86)
[2018-12-30 12:58] LABS: Anisocytosis 2+; Blood Morphology Comment NOTED (NOT SEEN); Platelet Estimate INCR; Polychromasia 1+; Urine White Blood Cell Casts OK
[2018-12-30 12:59] LABS: BUN Blood Urea Nitrogen 1 mg/dL (7-18); Bicarbonate 28 mmol/L (21-32); Glucose Level 161 mg/dL (74-106); Sodium Level 137 mmol/L (136-145)
[2018-12-30 13:01] LABS: Potassium 2.9 mmol/L (3.5-5.1)
[2018-12-30] MEDS ORDERED: POTASSIUM 25 MEQ EFFERV TAB ONE (13:45)
[2018-12-30] MEDS ORDERED: POTASSIUM CL SA 10 MEQ TAB PO ONE (13:45)
--- NOTE | 2018-12-30 14:37 | EDPHYS ---
Physician Documentation [facility] Name: Ava Alcantara Age: 38 yrs Sex: Female : 1980 Arrival Date: 12/30/2018 Time: 09:51 Bed 20 Private MD: Dav Beyer T ED Physician Steven Phillip HPI: 12/30 11:24 This 38 yrs old Female presents to ER via Ambulatory with complaints of rn swelling of neck. 11:24 The patient or guardian complains of swelling. The symptoms are located on the right rn sternocleidomastoid. Onset: The symptoms/episode began/occurred yesterday. Context: The problem was sustained at an unknown location, The neck injury/problem resulted from from unknown cause. Modifying factors: The symptoms are alleviated by heat, the symptoms are aggravated by nothing. Severity of symptoms: At their worst the symptoms were mild, in the emergency department the symptoms are unchanged. The patient has not experienced similar symptoms in the past. The patient has been recently been admitted at [facility]. Reports admitted to hospital for a few days for pancreatitis and duodenitis, given abx and fluids, on cipro/flagyl right now, noticed neck swelling to right neck that began yesterday. No trouble swallowing or breathing.. Historical: - Allergies: 10:03 Bactrim; hj 10:03 Iodine; hj - Home Meds: 10:03 carvedilol 12.5 mg Oral tab 1 tab 2 times per day [Active]; Flonase Nasal [Active]; hj Nexium 20 mg Oral cpDR 1 cap once daily [Active]; - PMHx: 10:03 Hypertension; hj - PSHx: 10:03 None; hj - Immunization history:: Adult Immunizations unknown. - Social history:: Smoking status: unknown Patient/guardian denies using alcohol. - Ebola Screening: : Patient negative for fever greater than or equal to 101.5 degrees Fahrenheit, and additional compatible Ebola Virus Disease symptoms Patient denies exposure to infectious person Patient denies travel to an Ebola-affected area in the 21 days before illness onset. - Family history:: not pertinent. - Hospitalizations: : No recent hospitalization is reported. ROS: 11:24 Constitutional: Negative for fever, chills, and weight loss, Eyes: Negative for injury, rn pain, redness, and discharge, Neck: Negative for injury Cardiovascular: Negative for chest pain, palpitations Respiratory: Negative for shortness of breath, cough, wheezing, and pleuritic chest pain, Abdomen/GI: Negative for abdominal pain, nausea, vomiting, diarrhea, and constipation, MS/Extremity: Negative for injury and deformity, Skin: Negative for injury, rash, and discoloration, Neuro: Negative for headache, weakness, numbness, tingling, and seizure. Exam: 11:24 Constitutional: This is a well developed, well nourished patient who is awake, alert, rn and in no acute distress. Head/Face: Normocephalic, atraumatic. Eyes: Pupils equal round and reactive to light, extra-ocular motions intact. Lids and lashes normal. Conjunctiva and sclera are non-icteric and not injected. Cornea within normal limits. Periorbital areas with no swelling, redness, or edema. ENT: MMM, no oral swelling Neck: Trachea midline, no focal masses, + subcutaneous edema of right neck along SCM, no crepitus, no overlying skin changes or erythema/warmth. Skin: Warm, dry with normal turgor. Normal color with no rashes, no lesions, and no evidence of cellulitis. MS/ Extremity: Pulses equal, no cyanosis. Neurovascular intact. Full, normal range of motion. Equal circumference. Neuro: Awake and alert, GCS 15, oriented to person, place, time, and situation. Cranial nerves II-XII grossly intact. Motor strength 5/5 in all extremities. Sensory grossly intact. Cerebellar exam normal. Normal gait. Vital Signs: 10:04 BP 136 / 87; Pulse 103; Resp 18; Temp 98.9; Pulse Ox 99% on R/A; Weight 89.36 kg; hj Height 5 ft. 2 in. (157.48 cm); Pain 4/10; 11:00 BP 134 / 80; Pulse 94; Resp 18; Pulse Ox 98% on R/A; ph 12:00 BP 127 / 76; Pulse 87; Resp 16; Pulse Ox 100% on R/A; ph 13:33 BP 122 / 78; Pulse 91; Resp 18; Temp 98.4; Pulse Ox 99% on R/A; ph 14:45 BP 127 / 80; Pulse 86; Resp 18; Temp 98.5; Pulse Ox 98% on R/A; ph 10:04 Body Mass Index 36.03 (89.36 kg, 157.48 cm) hj MDM: 09:54 Patient medically screened. rn 11:20 ED course: Pt with nonspecific fluid in neck, no LAD, no masses, most likely rn edema/fluid given patient states given so much fluid during recent hospital stay for pancreatitis and is swollen "everywhere". Patient denies having central line or neck procedure.. 14:34 Differential diagnosis: lymphadenopathy, edema, infection, lymphadenitis, DVT. Data rn reviewed: vital signs, nurses notes, lab test result(s), radiologic studies, CT scan, doppler, and as a result, I will discharge patient. Counseling: I had a detailed discussion with the patient and/or guardian regarding: the historical points, exam findings, and any diagnostic results supporting the discharge/admit diagnosis, lab results, radiology results, the need for outpatient follow up, to return to the emergency department if symptoms worsen or persist or if there are any questions or concerns that arise at home. Response to treatment: the patient's symptoms have mildly improved after treatment, and as a result, I will discharge patient. 12/30 10:01 Order name: CBC with Diff; Complete Time: 13:11 12/30 10:01 Order name: Basic Metabolic Panel; Complete Time: 13: 12/30 10:01 Order name: Procalcitonin 12/30 10:01 Order name: Blood Culture Adult (2) 12/30 10:01 Order name: Irion Screen Profile; Complete Time: 13:23 12/30 10:01 Order name: Strep; Complete Time: 13:11 12/30 10:01 Order name: Flu; Complete Time: 13:11 12/30 10:13 Order name: UPPER EXTREMITY VENOUS UNILATE; Complete Time: 11:00 [facility] 12/30 10:14 Order name: Soft Tissue Neck Wo Contr; Complete Time: 11:00 [facility] 12/30 11:53 Order name: Throat Culture ED[facility] 12/30 13:01 Order name: CBC Smear Scan; Complete Time: 13:11 [facility] 12/30 11:38 Order name: Labs - recollect needed; Complete Time: 12:15 bd Administered Medications: 12:16 Not Given (Other Intervention Used): Clindamycin 600 mg IVPB once over 30 mins; (mix in ph 50 mL) 12:23 Drug: Clindamycin 600 mg Route: IM; Site: right vastus lateralis; ph 13:36 Follow up: Response: No adverse reaction ph 13:36 Drug: Potassium Chloride 40 mEq Route: PO; ph 13:36 Follow up: Response: No adverse reaction ph 14:43 Drug: Acetaminophen 650 mg Route: PO; ph 14:43 Follow up: Response: No adverse reaction; Medication administered at discharge. ph Disposition: 12/30/18 14:36 Discharged to Home. Impression: Edema, unspecified, Localized swelling, mass and lump, neck. - Condition is Stable. - Discharge Instructions: Edema. - Prescriptions for Clindamycin HCl 300 mg Oral Capsule - take 1 capsule by ORAL route every 6 hours for 10 days; 40 capsule. - Medication Reconciliation Form, Thank You Letter, Antibiotic Education, Prescription Opioid Use form. - Follow up: Private Physician; When: As needed; Reason: Recheck today's complaints, Re-evaluation by your physician. - Problem is new. - Symptoms have improved. Signatures: Dispatcher [employer] EDMS Elena Larkin Roman, MD MD rn Hall, Patricia, RN RN Rodger Streeter RN RN Corrections: (The following items were deleted from the chart) 10:11 10:05 Soft Tissue Neck W/Contr+CT.RAD.BRZ ordered. EDWV EDMS 10:13 10:05 Extremity Venous Uni Ltd+US.RAD.BRZ ordered. EDWV EDMS 10:14 10:13 CT-SOFT TISSUE NECK W/O CONTR ordered. EDWV EDMS 14:46 14:36 12/30/2018 14:36 Discharged to Home. Impression: Edema, unspecified; Localized ph swelling, mass and lump, neck. Condition is Stable. Forms are Medication Reconciliation Form, Thank You Letter, Antibiotic Education, Prescription Opioid Use. Follow up: Private Physician; When: As needed; Reason: Recheck today's complaints, Re-evaluation by your physician. Problem is new. Symptoms have improved. rn
--- NOTE | 2018-12-30 14:37 | ER ---
Nurse's Notes [facility] Name: Ava Alcantara Age: 38 yrs Sex: Female : 1980 Arrival Date: 12/30/2018 Time: 09:51 Bed 20 Private MD: Dav Beyer T Diagnosis: Edema, unspecified;Localized swelling, mass and lump, neck Presentation: 12/30 10:01 Presenting complaint: Patient states: i was recently been D/C'd for a pancreas and bile hj duct problems and yesterday i started noticing my R neck area is swollen, denies trauma to the area; reports F/C; denies SOB or difficulty swallowing;. Transition of care: patient was not received from another setting of care. Onset of symptoms was December 30, 2018. Risk Assessment: Do you want to hurt yourself or someone else? Patient reports no desire to harm self or others. Initial Sepsis Screen: Does the patient meet any 2 criteria? HR > 90 bpm. Does the patient have a suspected source of infection? Yes: Skin breakdown/wound. Care prior to arrival: None. 10:01 Method Of Arrival: Ambulatory 10:01 Acuity: MEL 3 hj Triage Assessment: 10:03 General: Appears in no apparent distress. uncomfortable, Behavior is calm, cooperative, hj appropriate for age. Pain: Complains of pain in right sternocleidomastoid. Historical: - Allergies: 10:03 Bactrim; hj 10:03 Iodine; hj - Home Meds: 10:03 carvedilol 12.5 mg Oral tab 1 tab 2 times per day [Active]; Flonase Nasal [Active]; hj Nexium 20 mg Oral cpDR 1 cap once daily [Active]; - PMHx: 10:03 Hypertension; hj - PSHx: 10:03 None; hj - Immunization history:: Adult Immunizations unknown. - Social history:: Smoking status: unknown Patient/guardian denies using alcohol. - Ebola Screening: : Patient negative for fever greater than or equal to 101.5 degrees Fahrenheit, and additional compatible Ebola Virus Disease symptoms Patient denies exposure to infectious person Patient denies travel to an Ebola-affected area in the 21 days before illness onset. - Family history:: not pertinent. - Hospitalizations: : No recent hospitalization is reported. Screenin:03 Abuse screen: Denies threats or abuse. Denies injuries from another. Nutritional hj screening: No deficits noted. Tuberculosis screening: No symptoms or risk factors identified. Fall Risk None identified. Assessment: 10:03 General: Appears in no apparent distress. uncomfortable, Behavior is calm, cooperative, hj appropriate for age. Pain: Complains of pain in neck and right sternocleidomastoid. Neuro: Level of Consciousness is awake, alert, obeys commands, Oriented to person, place, time, situation, Appropriate for age. Cardiovascular: Capillary refill < 3 seconds Patient's skin is warm and dry. Respiratory: Airway is patent Respiratory effort is even, unlabored, Respiratory pattern is regular, symmetrical. GI: No signs and/or symptoms were reported involving the gastrointestinal system. : No signs and/or symptoms were reported regarding the genitourinary system. EENT: Reports pain in neck and right sternocleidomastoid. Derm: No signs and/or symptoms reported regarding the dermatologic system. Musculoskeletal: No signs and/or symptoms reported regarding the musculoskeletal system. 10:04 Reassessment: wheeled to US;. hj 11:20 Reassessment: Patient appears in no apparent distress at this time. Patient and/or ph family updated on plan of care and expected duration. Pain level reassessed. Patient is alert, oriented x 3, equal unlabored respirations, skin warm/dry/pink. ERP at bedside to speak w/ pt, IV medication changed to IM r/t difficulty obtaining IV access. 12:15 Reassessment: Patient appears in no apparent distress at this time. Patient and/or iw family updated on plan of care and expected duration. Pain level reassessed. Patient is alert, oriented x 3, equal unlabored respirations, skin warm/dry/pink. 13:35 Reassessment: Patient appears in no apparent distress at this time. Patient and/or ph family updated on plan of care and expected duration. Pain level reassessed. Patient is alert, oriented x 3, equal unlabored respirations, skin warm/dry/pink. 14:42 Reassessment: Patient appears in no apparent distress at this time. Patient and/or ph family updated on plan of care and expected duration. Pain level reassessed. Patient is alert, oriented x 3, equal unlabored respirations, skin warm/dry/pink. Pt d/c home w/ family, instructed to return if symptoms worsen. Vital Signs: 10:04 BP 136 / 87; Pulse 103; Resp 18; Temp 98.9; Pulse Ox 99% on R/A; Weight 89.36 kg; hj Height 5 ft. 2 in. (157.48 cm); Pain 4/10; 11:00 BP 134 / 80; Pulse 94; Resp 18; Pulse Ox 98% on R/A; ph 12:00 BP 127 / 76; Pulse 87; Resp 16; Pulse Ox 100% on R/A; ph 13:33 BP 122 / 78; Pulse 91; Resp 18; Temp 98.4; Pulse Ox 99% on R/A; ph 14:45 BP 127 / 80; Pulse 86; Resp 18; Temp 98.5; Pulse Ox 98% on R/A; ph 10:04 Body Mass Index 36.03 (89.36 kg, 157.48 cm) hj ED Course: 09:51 Patient arrived in ED. cl3 09:52 Dav Beyer MD is Private Physician. cl3 09:54 Steven Phillpi MD is Attending Physician. rn 10:01 Rodger Streeter, HOWARD is Primary Nurse. hj 10:02 Triage completed. hj 10:04 Arm band placed on right wrist. hj 10:04 Patient has correct armband on for positive identification. Placed in gown. Bed in low hj position. Call light in reach. Side rails up X 1. 10:45 UPPER EXTREMITY VENOUS UNILATE In Process Unspecified. EDMS 10:46 Soft Tissue Neck Wo Contr In Process Unspecified. EDMS 11:48 Rina Jonas, RN is Primary Nurse. ph 12:16 Lab(s) recollected, by me, sent to lab. iw 13:47 Awaiting lab results. jl7 14:44 No provider procedures requiring assistance completed. Patient did not have IV access ph during this emergency room visit. Administered Medications: 12:16 Not Given (Other Intervention Used): Clindamycin 600 mg IVPB once over 30 mins; (mix in ph 50 mL) 12:23 Drug: Clindamycin 600 mg Route: IM; Site: right vastus lateralis; ph 13:36 Follow up: Response: No adverse reaction ph 13:36 Drug: Potassium Chloride 40 mEq Route: PO; ph 13:36 Follow up: Response: No adverse reaction ph 14:43 Drug: Acetaminophen 650 mg Route: PO; ph 14:43 Follow up: Response: No adverse reaction; Medication administered at discharge. ph Outcome: 14:36 Discharge ordered by . rn 14:45 Discharged to home ambulatory, with family. ph 14:45 Condition: good 14:45 Discharge instructions given to patient, family, Instructed on discharge instructions, follow up and referral plans. medication usage, Demonstrated understanding of instructions, follow-up care, medications, Prescriptions given X 1. 14:46 Patient left the ED. ph Signatures: Dispatcher [employer] EDJosi Loaiza RN RN Steven Phillip MD MD rn Hall, Patricia, RN RN Rodger Streeter RN RN hj Leal, Jahala, RN RN Michelle Babin cl3
[2018-12-30] MEDS ORDERED: ACETAMINOPHEN 325 MG TABLET ONE (14:54)
[2018-12-31 12:56] VITALS: BP 127/80; TEMP 98.5; O2SAT 98
== END 2018-12-30 14:46 | disposition home or self-care (01) ==
LOC: ER 09:45
DX: R22.1 Localized swelling, mass and lump, neck (principal); R60.9 Edema, unspecified; I10 Essential (primary) hypertension; Z88.1 Allergy status to other antibiotic agents; Z88.8 Allergy status to other drugs, medicaments and biological substances
CPT/HCPCS: 36415; 70490; 80048; 84145; 85025; 86308; 87040; 87070; 87081; 87804; 93971; 96372; 99284; S0077

== ENCOUNTER 2022-06-03 05:26 | Inpatient (IN) | payer SELFPAY ==
[2022-06-03 06:09] LABS: Absolute Lymphocytes (CBC) 2.4 K/uL (0.7-4.9); Hematocrit 47.8 % (36.0-45.0); Lymphocytes % 20.1 % (15.3-44.8); MCV 99.7 fL (80-100)
[2022-06-03 06:18] LABS: Protime INR 0.9
[2022-06-03 06:52] LABS: SARS-COV-2 RT PCR NEGATIVE (NEGATIVE)
[2022-06-03] MEDS ORDERED: NA CHLORIDE 0.9% 1,000 ML ONE ×2 (07:00→16:18)
[2022-06-03] MEDS ORDERED: NA CHLORIDE 0.9% 2,000 ML ONE (07:20)
[2022-06-03] MEDS ORDERED: CEFTRIAXONE 1000 MG/VIAL ONE (07:20)
--- NOTE | 2022-06-03 07:21 | ER ---
Nurse's Notes [facility] Name: Ava Alcantara Age: 41 yrs Sex: Female : 1980 Arrival Date: 06/03/2022 Time: 05:27 Bed 15 Private MD: Diagnosis: Weakness;Diabetes mellitus due to underlying condition with ketoacidosis;Dehydration;Systemic lupus erythematosus, unspecified;Hypomagnesemia Presentation: 06/03 05:37 Chief complaint: Patient states: "I had a really bad stomach ache last night, then it tw5 just hit me out of nowhere that I was feeling short of breath. I woke up out of my sleep feeling short of breath.". Coronavirus screen: Vaccine status: Patient reports being unvaccinated. Ebola Screen: Patient negative for fever greater than or equal to 101.5 degrees Fahrenheit, and additional compatible Ebola Virus Disease symptoms Patient denies exposure to infectious person. Patient denies travel to an Ebola-affected area in the 21 days before illness onset. Initial Sepsis Screen: Does the patient meet any 2 criteria? RR > 20 per min. HR > 90 bpm. Does the patient have a suspected source of infection? Yes: Acute abdominal pain If YES to both, name of provider notified: Cl Moser MD Risk Assessment: Do you want to hurt yourself or someone else? Patient reports no desire to harm self or others. Onset of symptoms was June 03, 2022 at 05:00. 05:37 Method Of Arrival: Wheelchair tw5 05:37 Acuity: MEL 2 tw5 Triage Assessment: 05:39 General: Appears uncomfortable, Behavior is calm, cooperative. Respiratory: Reports tw5 shortness of breath at rest Onset: The symptoms/episode began/occurred this morning, the patient has mild shortness of breath. Historical: - Allergies: 05:39 Bactrim; tw5 05:39 Iodine; tw5 - PMHx: 05:39 Hypertension; Diabetes mellitus; Lupus erythematosus; tw5 - PSHx: 05:39 breast reduction; tw5 - Immunization history:: Flu vaccine is not up to date. - Social history:: Smoking status: Patient reports the use of cigarette tobacco products, smokes one pack cigarettes per day. Screenin:53 Abuse screen: Denies threats or abuse. Denies injuries from another. Nutritional aa9 screening: No deficits noted. Tuberculosis screening: No symptoms or risk factors identified. 09:56 [facility] ED Fall Risk Assessment (Adult) History of falling in the last 3 months, kc6 including since admission No falls in past 3 months (0 pts) Confusion or Disorientation No (0 pts) Intoxicated or Sedated No (0 pts) Impaired Gait No (0 pts) Mobility Assist Device Used No (0 pt) Altered Elimination No (0 pt) Score/Fall Risk Level 0 - 2 = Low Risk Oriented to surroundings, Maintained a safe environment, Educated pt \\T\\ family on fall prevention, incl call for assistance when getting out of bed, Assessed \\T\\ reinforced patient's understanding of fall precautions, Provided non-skid footwear, Hourly rounding (assess needs \\T\\ fall precautionary measures) done, Used ambulatory aids as needed (educated on \\T\\ assisted with), Used gait belt as appropriate. Assessment: 06:52 General: Appears distressed, uncomfortable, Behavior is cooperative, appropriate for aa9 age, anxious. Pain: Complains of pain in chest. Neuro: Level of Consciousness is awake, alert, obeys commands, Oriented to person, place, time, situation. Cardiovascular: Rhythm is sinus tachycardia. Respiratory: Airway is patent Respiratory effort is even, labored, Respiratory pattern is tachypnea. GI: No deficits noted. : No signs and/or symptoms were reported regarding the genitourinary system. Derm: Skin is intact, is healthy with good turgor, Skin is flushed. 07:13 Reassessment: received report from HOWARD Escamilla. kc6 07:34 General: Appears in no apparent distress. uncomfortable, Behavior is calm, cooperative, kc6 appropriate for age. Neuro: Cooper Agitation-Sedation Scale (RASS): 0 - Alert and Calm Level of Consciousness is awake, alert, obeys commands, Oriented to person, place, time, situation, Appropriate for age. Cardiovascular: Heart tones S1 S2 present Capillary refill < 3 seconds. Respiratory: Airway is patent Trachea midline Respiratory effort is even, labored, Respiratory pattern is symmetrical, tachypnea Breath sounds are clear bilaterally. 08:04 Reassessment: insulin drip order faxed to pharmacy at [phone]. kc6 08:29 Reassessment: Patient appears in no apparent distress at this time. No changes from kc6 previously documented assessment. Patient and/or family updated on plan of care and expected duration. Pain level reassessed. Patient is alert, oriented x 3, equal unlabored respirations, skin warm/dry/pink. Patient denies pain at this time. 09:29 Reassessment: please see [facility] for further charting. kc6 Vital Signs: 05:37 BP 142 / 94; Pulse 101; Resp 22; Temp 98.4; Pulse Ox 100% on R/A; Weight 74.84 kg; tw5 Height 5 ft. 2 in. (157.48 cm); 06:15 BP 133 / 99; Pulse 87; Resp 22; Pulse Ox 100% on 2 lpm NC; aa9 07:35 BP 117 / 88; Pulse 90; Resp 23 S; Pulse Ox 100% on 2 lpm NC; kc6 08:29 BP 122 / 92; Pulse 90; Resp 19 S; Pulse Ox 100% on 2 lpm NC; kc6 05:37 Body Mass Index 30.18 (74.84 kg, 157.48 cm) tw5 ED Course: 05:27 Patient arrived in ED. tw5 05:28 Cl Moser MD is Attending Physician. michael 05:39 Triage completed. tw5 05:39 Arm band placed on. tw5 05:40 Patient has correct armband on for positive identification. Bed in low position. Call tw5 light in reach. Side rails up X 1. Adult w/ patient. Client placed on continuous cardiac and pulse oximetry monitoring. NIBP monitoring applied. Door closed. Moved to private room. Warm blanket given. Verbal reassurance given. 05:45 XRAY Chest (1 view) In Process Unspecified. EDMS 07:13 Sandra Oglesby, HOWARD is Primary Nurse. [facility] 07:18 Nicolas Padilla is Hospitalizing Provider. michael 09:18 Inserted saline lock: 22 gauge in left wrist, using aseptic technique. ss 09:56 No provider procedures requiring assistance completed. Patient admitted, IV remains in kc6 place. 19:10 Primary Nurse role handed off by Sandra Oglesby RN mw2 19:32 Natalia Jonas RN is Primary Nurse. 3 Administered Medications: 07:03 Drug: NS 0.9% 1000 ml Route: IV; Rate: 1 bolus; Site: left jugular; aa9 08:29 Follow up: Response: No adverse reaction; IV Status: Completed infusion; IV Intake: kc6 1000ml 07:33 Drug: Rocephin (cefTRIAXone) 1 grams Route: IV; Rate: per protocol; Site: left jugular; kc6 08:29 Follow up: Response: No adverse reaction; IV Status: Completed infusion; IV Intake: [id number] 08:19 Drug: Sodium Bicarbonate 1 amp Route: IVP; Site: left jugular; kc6 09:19 Follow up: Response: No adverse reaction kc6 08:25 Drug: Insulin Drip - (Insulin Regular Human 100 units, NS 0.9% 100 ml) {Co-Signature: kc6 vg1 (Ethel Marie RN).} Route: IV; Rate: 6 units/hr; Site: left jugular; 18:50 Follow up: Response: No adverse reaction; IV Status: Infusion continued kc6 09:45 Drug: NS 0.9% 1000 ml Route: IV; Rate: 1 bolus; Site: left wrist; kc6 11:11 Follow up: Response: No adverse reaction; IV Status: Completed infusion; IV Intake: kc6 1000ml 10:01 Drug: Magnesium Sulfate 2 grams Route: IVPB; Infused Over: 2 hrs; Site: left wrist; kc6 11:01 Follow up: Response: No adverse reaction; IV Status: Completed infusion kc6 11:11 Drug: NS 0.9% 1000 ml Route: IV; Rate: 125 ml/hr; Site: left wrist; kc6 18:50 Follow up: Response: No adverse reaction; IV Status: Completed infusion; IV Intake: kc6 1000ml Medication: 06:53 VIS not applicable for this client. aa9 Intake: 08:29 IV: 10ml; Total: 10ml. kc6 08:29 IV: 1000ml; Total: 1010ml. kc6 11:11 IV: 1000ml; Total: 2010ml. kc6 18:50 IV: 1000ml; Total: 3010ml. kc6 Outcome: 07:20 Decision to Hospitalize by Provider. michael 09:29 Admitted to ER Hold. Please see [facility] for further documentation. kc6 09:29 Condition: stable 09:29 Instructed on the need for admit. 19:33 Admitted to ICU accompanied by nurse, via stretcher, on monitor, Report called to 3 Asia Yoo RN 19:33 Condition: stable 19:46 Patient left the ED. ll3 Signatures: Dispatcher [employer] EDCl Ortiz MD MD cha Smirch, Shelby, RN RN Rey Santiago 2 Veena Serna 5 Prateek Lee RN RN ll3 Natalia Jonas RN RN 3 Francine Huston RN RN aa9 Sandra Oglesby RN RN kc6 Ethel Marie RN vg1
--- NOTE | 2022-06-03 07:21 | EDPHYS ---
Physician Documentation [facility] Name: Ava Alcantara Age: 41 yrs Sex: Female : 1980 Arrival Date: 06/03/2022 Time: 05:27 Bed 15 Private MD: JUAN ANTONIO Physician Cl Moser HPI: 06/03 07:02 This 41 yrs old Female presents to ER via Wheelchair with complaints of michael Shortness Of Breath. 07:02 The patient has shortness of breath at rest. Onset: The symptoms/episode began/occurred michael 1 day(s) ago. Duration: The symptoms are continuous, and are steadily getting worse. The patient's shortness of breath has no apparent modifying factors. Associated signs and symptoms: The patient has no apparent associated signs or symptoms. Severity of symptoms: At their worst the symptoms were mild moderate in the emergency department the symptoms are unchanged. The patient has not experienced similar symptoms in the past. Historical: - Allergies: 05:39 Bactrim; tw5 05:39 Iodine; tw5 - PMHx: 05:39 Hypertension; Diabetes mellitus; Lupus erythematosus; tw5 - PSHx: 05:39 breast reduction; tw5 - Immunization history:: Flu vaccine is not up to date. - Social history:: Smoking status: Patient reports the use of cigarette tobacco products, smokes one pack cigarettes per day. ROS: 07:04 Constitutional: Negative for fever, chills, and weight loss, Eyes: Negative for injury, michael pain, redness, and discharge, ENT: Negative for injury, pain, and discharge, Neck: Negative for injury, pain, and swelling, Abdomen/GI: Negative for abdominal pain, nausea, vomiting, diarrhea, and constipation, Back: Negative for injury and pain, : Negative for injury, bleeding, discharge, and swelling, MS/Extremity: Negative for injury and deformity, Skin: Negative for injury, rash, and discoloration, Neuro: Negative for headache, weakness, numbness, tingling, and seizure, Psych: Negative for depression, anxiety, suicide ideation, homicidal ideation, and hallucinations, Allergy/Immunology: Negative for hives, rash, and allergies, Endocrine: Negative for neck swelling, polydipsia, polyuria, polyphagia, and marked weight changes, Hematologic/Lymphatic: Negative for swollen nodes, abnormal bleeding, and unusual bruising. 07:04 Cardiovascular: Positive for chest pain. Exam: 07:08 Constitutional: The patient appears in obvious distress, moderately distressed. [facility] 07:08 Cardiovascular: Rate: normal, actual rate is 87 bpm, Rhythm: regular, Pulses: Pulses are 4+ in bilateral radial, brachial, femoral, popliteal, posterior tibial and and dorsalis pedis arteries.. Heart sounds: normal, Edema: is not appreciated, JVD: is not appreciated. 07:08 Respiratory: mild respiratory distress is noted, moderate respiratory distress is noted, Respirations: labored breathing, that is moderate, Breath sounds: are clear throughout, Respiratory rate: 24 07:08 Skin: Malar. 07:39 ECG was reviewed by the Attending Physician. [facility] Vital Signs: 05:37 BP 142 / 94; Pulse 101; Resp 22; Temp 98.4; Pulse Ox 100% on R/A; Weight 74.84 kg; tw5 Height 5 ft. 2 in. (157.48 cm); 06:15 BP 133 / 99; Pulse 87; Resp 22; Pulse Ox 100% on 2 lpm NC; aa9 07:35 BP 117 / 88; Pulse 90; Resp 23 S; Pulse Ox 100% on 2 lpm NC; kc6 08:29 BP 122 / 92; Pulse 90; Resp 19 S; Pulse Ox 100% on 2 lpm NC; kc6 05:37 Body Mass Index 30.18 (74.84 kg, 157.48 cm) tw5 Procedures: 07:22 Peripheral line: by aseptic technique a peripheral line was placed in the left external michael jugular vein. MDM: 05:28 Patient medically screened. [facility] 07:13 Differential diagnosis: Bronchitis CHF exacerbation, Chronic Obstructive Pulmonary michael Disease Nonspecific abd pain, gastritis, viral gastroenteritis, gastroenteritis, pneumonia, Pneumothorax pulmonary edema, Pulmonary Embolism coronary artery disease, Cholelithiasis, diverticulitis, gastritis, non-specific abd pain, pancreatitis, Pyelonephritis, Ureterolithiasis, urinary tract infection. Antibiotic administration: rocephin. The patient's Wells Deep Vein Thrombosis Score was calculated as follows: Total Score: 0-2 Pts- Low Risk. The patient's pulmonary embolism risk score was calculated as follows: Total Score: 0-2 points. This patient was found to be at low risk for a pulmonary embolism by using the Well's assessment criteria. Immunization status:. Data reviewed: vital signs, nurses notes, lab test result(s), EKG, radiologic studies, plain films. Data interpreted: manager monitoring: rate is 87 beats/min, rhythm is normal sinus rhythm, Pulse oximetry: on room air is 100 %. Test interpretation: by ED physician or midlevel provider: ECG, plain radiologic studies. Counseling: I had a detailed discussion with the patient and/or guardian regarding: the historical points, exam findings, and any diagnostic results supporting the discharge/admit diagnosis, lab results, radiology results, the need for further work-up and treatment in the hospital. 06/03 05:29 Order name: Basic Metabolic Panel; Complete Time: 19:14 [facility] 06/03 05:29 Order name: CBC with Diff; Complete Time: 19:14 [facility] 06/03 05:29 Order name: LFT's; Complete Time: 19:14 [facility] 06/03 05:29 Order name: Magnesium; Complete Time: 19:14 [facility] 06/03 05:29 Order name: NT PRO-BNP; Complete Time: 19:14 [facility] 06/03 05:29 Order name: PT-INR; Complete Time: 06:55 [facility] 06/03 05:29 Order name: Troponin HS; Complete Time: 19:14 [facility] 06/03 05:29 Order name: Blood Culture Adult (2) [facility] 06/03 05:29 Order name: D-Dimer; Complete Time: 06:55 [facility] 06/03 05:29 Order name: COVID-19/FLU A+B; Complete Time: 06:55 [facility] 06/03 05:29 Order name: Lactate w/ 2H reflex if indic.; Complete Time: 19:14 [facility] 06/03 05:29 Order name: Lipase; Complete Time: 19:14 [facility] 06/03 06:57 Order name: ABG [facility] 06/03 09:02 Order name: CBC Smear Scan [facility] 06/03 05:29 Order name: XRAY Chest (1 view) [facility] 06/03 09:39 Order name: Glucose, Ancillary Testing; Complete Time: 19:14 [facility] 06/03 10:23 Order name: Basic Metabolic Panel; Complete Time: 19:14 [facility] 06/03 10:25 Order name: Test Serum, [place]; Complete Time: 19:14 [facility] 06/03 10:27 Order name: Urine Dipstick-Ancillary; Complete Time: 19:14 [facility] 06/03 10:31 Order name: Glucose, Ancillary Testing; Complete Time: 19:14 [facility] 06/03 11:41 Order name: Glucose, Ancillary Testing; Complete Time: 19:14 [facility] 06/03 12:41 Order name: Glucose, Ancillary Testing; Complete Time: 19:14 [facility] 06/03 13:38 Order name: Glucose, Ancillary Testing; Complete Time: 19:14 [facility] 06/03 14:39 Order name: Glucose, Ancillary Testing; Complete Time: 19:14 [facility] 06/03 14:56 Order name: Basic Metabolic Panel; Complete Time: 19:14 [facility] 06/03 15:36 Order name: Glucose, Ancillary Testing; Complete Time: 19:14 [facility] 06/03 16:49 Order name: Glucose, Ancillary Testing; Complete Time: 19:14 [facility] 06/03 17:45 Order name: Glucose, Ancillary Testing; Complete Time: 19:14 [facility] 06/03 18:46 Order name: Glucose, Ancillary Testing; Complete Time: 19:14 [facility] 06/03 18:59 Order name: Basic Metabolic Panel; Complete Time: 19:14 [facility] 06/03 05:29 Order name: EKG; Complete Time: 05:30 michael 06/03 05:29 Order name: Cardiac monitoring; Complete Time: 06:15 michael 06/03 05:29 Order name: EKG - Nurse/Tech; Complete Time: 07:33 michael 06/03 05:29 Order name: IV Saline Lock; Complete Time: 07:07 michael 06/03 05:29 Order name: Labs collected and sent; Complete Time: 06:15 michael 06/03 05:29 Order name: O2 Per Protocol; Complete Time: 06:15 michael 06/03 05:29 Order name: O2 Sat Monitoring; Complete Time: 06:15 michael 06/03 06:27 Order name: US Extremity Venous W Compression Burton michael 06/03 06:50 Order name: Labs - recollect needed: recollect the chemistries/ inside lab paged; eb Complete Time: 07:07 06/03 13:38 Order name: US; Complete Time: 19:14 [facility] EC:39 Rate is 92 beats/min. Rhythm is regular. QRS [place] is Normal. CO interval is normal. QRS michael interval is normal. QT interval is normal. No Q waves. T waves are Normal. No ST changes noted. Clinical impression: NSR w/ Non-specific ST/T Changes and No evidence of ischemia. Interpreted by me. Reviewed by me. Administered Medications: 07:03 Drug: NS 0.9% 1000 ml Route: IV; Rate: 1 bolus; Site: left jugular; aa9 08:29 Follow up: Response: No adverse reaction; IV Status: Completed infusion; IV Intake: kc6 1000ml 07:33 Drug: Rocephin (cefTRIAXone) 1 grams Route: IV; Rate: per protocol; Site: left jugular; kc6 08:29 Follow up: Response: No adverse reaction; IV Status: Completed infusion; IV Intake: [id number] 08:19 Drug: Sodium Bicarbonate 1 amp Route: IVP; Site: left jugular; kc6 09:19 Follow up: Response: No adverse reaction kc6 08:25 Drug: Insulin Drip - (Insulin Regular Human 100 units, NS 0.9% 100 ml) {Co-Signature: kc6 vg1 (Ethel Marie RN).} Route: IV; Rate: 6 units/hr; Site: left jugular; 18:50 Follow up: Response: No adverse reaction; IV Status: Infusion continued kc6 09:45 Drug: NS 0.9% 1000 ml Route: IV; Rate: 1 bolus; Site: left wrist; kc6 11:11 Follow up: Response: No adverse reaction; IV Status: Completed infusion; IV Intake: kc6 1000ml 10:01 Drug: Magnesium Sulfate 2 grams Route: IVPB; Infused Over: 2 hrs; Site: left wrist; kc6 11:01 Follow up: Response: No adverse reaction; IV Status: Completed infusion kc6 11:11 Drug: NS 0.9% 1000 ml Route: IV; Rate: 125 ml/hr; Site: left wrist; kc6 18:50 Follow up: Response: No adverse reaction; IV Status: Completed infusion; IV Intake: kc6 1000ml Disposition: 07:17 Critical Care: not applicable. michael Disposition Summary: 06/03/22 07:20 Hospitalization Ordered Hospitalization Status: Inpatient Admission michael Provider: Nicolas Padilla cha Condition: Fair michael Problem: new michael Symptoms: have improved michael Bed/Room Type: Standard michael Location: Intensive Care Unit(06/03/22 18:43) dw Room Assignment: 7-(06/03/22 18:43) dw Diagnosis - Weakness michael - Diabetes mellitus due to underlying condition with ketoacidosis michael - Dehydration michael - Systemic lupus erythematosus, unspecified michael - Hypomagnesemia michael Forms: - Medication Reconciliation Form michael - SBAR form michael Critical care time excluding procedures: 07:17 Critical care time: Bedside Care: 30 minutes, Consultation: 10 minutes, Family michael Intervention: 5 minutes. Total time: 45 minutes Signatures: Dispatcher [employer] Ana Maria Miller RN RN Cl Clark MD MD cha Botello, Elizabeth eb Wood, Tiffany tw5 Francine Huston, RN RN aa9 Sandra Oglesby RN RN kc6 Ethel Marie RN vg1 Corrections: (The following items were deleted from the chart) 06:51 06:27 Chest For PE Angio+CT.RAD.BRZ ordered. [facility] ED[facility] 10:17 07:20 Intensive Care Unit michael eb 10:17 07:20 michael eb 18:43 10:17 BR ER HOLD eb dw 18:43 10:17 ERHOLD- eb dw
[2022-06-03 07:39] LABS: ALT/SGPT 21 U/L (13-56); AST/SGOT 16 U/L (15-37); Albumin 3.9 g/dL (3.4-5.0); Alkaline Phosphatase 131 U/L (45-117); BUN Blood Urea Nitrogen 6 mg/dL (7-18); Bilirubin Direct 0.2 mg/dL (0-0.2); Bilirubin Total 0.7 mg/dL (0.2-1.0); Glomerular Filtration Rate 86 ml/min (=/>90); Glucose Level 343 mg/dL (74-106); Lipase 431 U/L (73-393); Magnesium 1.4 mg/dL (1.6-2.4); NT PRO-BNP 312 pg/mL (<125); Potassium 5.5 mmol/L (3.5-5.1); Protein, Total 8.3 g/dL (6.4-8.2); Sodium Level 125 mmol/L (136-145)
[2022-06-03 07:41] LABS: Bicarbonate < 8 mmol/L (21-32)
[2022-06-03] MEDS ORDERED: SODIUM BICARB 50 MEQ/50ML VIAL ONE (08:02)
[2022-06-03] MEDS ORDERED: Magnesium Sulfate 2gm IVPB 2 G/50 ML BAG IV ONE ×2 (08:02→22:29)
[2022-06-03] MEDS ORDERED: INSULIN -REGULAR HUMAN 100 UNIT in NA CHLORIDE 0.9% 100 ML IV ONE (08:15)
[2022-06-03 09:00] LABS: Blood Morphology Comment NOT SEEN (NOT SEEN); Platelet Estimate ADEQ; White Blood Cell Scan OK (OK)
[2022-06-03] MEDS ORDERED: ONDANSETRON 4 MG/2 ML VIAL IV PRN (09:36)
[2022-06-03] MEDS ORDERED: INSULIN -REGULAR HUMAN 100 UNIT in NA CHLORIDE 0.9% 100 ML IV SCH (09:36)
[2022-06-03] MEDS ORDERED: D5 0.45 NS 1,000 ML IV SCH (10:00)
[2022-06-03] MEDS: NA CHLORIDE 0.9% 1,000 ML IV SCH ×4 (10:00→21:08)
[2022-06-03 10:11] VITALS: BMI 29.6
[2022-06-03 10:22] LABS: BUN Blood Urea Nitrogen 8 mg/dL (7-18); Glomerular Filtration Rate 91 ml/min (=/>90); Glucose Level 265 mg/dL (74-106); Potassium 4.5 mmol/L (3.5-5.1); Sodium Level 130 mmol/L (136-145)
[2022-06-03 10:23] LABS: Bicarbonate < 8 mmol/L (21-32)
[2022-06-03 10:27] LABS: Urine Blood 2+ (Negative); Urine Glucose 2+ (Negative); Urine Protein 3+ (Negative); Urine Specific Gravity >=1.030 (1.005-1.030); Urine pH 5.5 (5.0-7.0)
[2022-06-03] MEDS ORDERED: INFLUENZA VACCINE (for 6+ mo) 0.5 ML DOSE IMVAC ONE (12:00)
--- NOTE | 2022-06-03 12:09 | P.HP ---
Certification for Inpatient Patient admitted to: Inpatient With expected LOS: >2 Midnights Practitioner: I am a practitioner with admitting privileges, knowledge of patient current condition, hospital course, and medical plan of care. Services: Services provided to patient in accordance with Admission requirements found in Title 42 Section 412.3 of the Code of Federal Regulations Patient History Date of Service: 06/03/22 Reason for admission: Shortness of breath nausea and vomiting. History of Present Illness: 41-year-old man with a history of non-insulin diabetes on metformin presented to the emergency department with a complaint of nausea and vomiting and shortness of breath of 1 day duration. Patient denied any fever or diarrhea or fever. She also denied any cough or chest pain. blood work in the ED consistent with DKA with hyperglycemia, low bicarb and high anion gap. DKA protocol initiated in the ED and patient started on insulin drip and IV fluids. Patient admitted for further management. Allergies iodine Allergy (Severe, Verified 12/17/18 17:28) Anaphylaxis sulfamethoxazole [From Bactrim] Adverse Reaction (Intermediate, Verified 12/17/18 17:28) Nausea/Vomiting trimethoprim [From Bactrim] Adverse Reaction (Intermediate, Verified 12/17/18 17:28) Nausea/Vomiting Home Medications: Esomeprazole Mag Trihydrate [Nexium] 20 mg PO DAILY 12/17/18 Fluticasone [Flonase 50MCG Nasal [place]*] 1 spray DOLLY DAILY 12/17/18 carvediloL [Coreg*] 12.5 mg PO BID 12/17/18 Calcium Carbonate [Oscal*] 1,000 mg PO TID #90 tab 12/22/18 Ciprofloxacin HCl 500 mg PO BID #28 tablet 12/22/18 Lipase/Protease/Amylase [Shahrzadon Dr 12,000 Units Capsule] 1 cap PO BID #60 cap 12/22/18 metroNIDAZOLE [Flagyl*] 500 mg PO QID #42 tablet 12/22/18 - Past Medical/Surgical History Diabetic: Yes -: hypertension -: GERD -: alcohol - Family History Father -: Diabetes - Social History Smoking Status: Current every day smoker Alcohol use: Yes CD- Drugs: No Caffeine use: No Place of Residence: Home Review of Systems Other: Except as documented, all other systems reviewed and negative. Physical Examination - Physical Exam General: Alert, In no apparent distress, Oriented x3 HEENT: Atraumatic, Mucous membr. moist/pink Neck: Supple, JVD not distended Respiratory: Clear to auscultation bilaterally, Normal air movement Cardiovascular: No edema, Regular rate/rhythm, Normal S1 S2 Gastrointestinal: Soft and benign, Non-distended, No tenderness Musculoskeletal: No swelling, No tenderness Integumentary: No rashes, No cyanosis Neurological: Normal strength at 5/5 x4 extr Lymphatics: No axilla or inguinal lymphadenopathy - Studies Laboratory Data (last 24 hrs) 06/03/22 06:57: Sodium 125 L, Potassium 5.5 H, BUN 6 L, Creatinine 0.87, Glucose 343 H, Magnesium 1.4 L*, Total Bilirubin 0.7, AST 16, ALT 21, Alkaline Phosphatase 131 H, Lipase 431 H 06/03/22 05:57: PT 9.9, INR 0.90 06/03/22 05:57: WBC 12.20 H, Hgb 16.1 H, Hct 47.8 H, Plt Count 224 Assessment and Plan - Problems (Diagnosis) (1) DKA (diabetic ketoacidosis) Current Visit: Yes Status: Acute - Plan Admit patient to the ICU. DKA protocol initiated with insulin drip. Aggressive IV hydration. Bicarb drip for severe metabolic acidosis. Monitor BMP according to DKA protocol. Keep n.p.o.. Empiric IV Rocephin - Advance Directives Does patient have a Living Will: No Does patient have a Durable POA for Healthcare: No
[2022-06-03] MEDS: D5W 1,000 ML with NA BICARB 8.4% 100 MEQ IV SCH ×4 (13:00→21:06)
--- NOTE | 2022-06-03 13:38 | RAD REPORT ---
EXAM DESCRIPTION: US - Extrem Venous W Compress Burton - 06/03/2022 1:29 pm CLINICAL HISTORY: Pain COMPARISON: None. TECHNIQUE: Real-time sonographic evaluation of the bilateral lower extremity common femoral, superfi cial femoral, popliteal and posterior tibial veins was performed. FINDINGS: Normal compressibility, flow augmentation, phasic flow and spontaneous flow are identified in the left and right lower extremity common femoral, superficial femoral, popliteal and posterior t ibial veins. No intraluminal filling defects seen. IMPRESSION: No DVT in either lower extremity.
[2022-06-03] MEDS ORDERED: KETOROLAC 10 MG TAB PO PRN (14:32)
[2022-06-03 14:55] LABS: BUN Blood Urea Nitrogen 7 mg/dL (7-18); Glomerular Filtration Rate 112 ml/min (=/>90); Glucose Level 203 mg/dL (74-106); Potassium 5.3 mmol/L (3.5-5.1); Sodium Level 132 mmol/L (136-145)
[2022-06-03 14:56] LABS: Bicarbonate < 8 mmol/L (21-32)
[2022-06-03] MEDS ORDERED: ACETAMINOPHEN 500 MG TAB PO PRN (16:05)
[2022-06-03] MEDS ORDERED: ACETAMINOPHEN 500 MG TAB ONE (16:18)
--- NOTE | 2022-06-03 17:50 | RAD REPORT ---
EXAM DESCRIPTION: RAD - Chest Single View - 06/03/2022 5:44 am CLINICAL HISTORY: The patient is 41 years old and is Female; DYSPNEA TECHNIQUE: Frontal view of the chest. COMPARISON: No relevant prior studies available. FINDINGS: Lungs: Unremarkable. No consolidation. Pleural space: Unremarkable. No pneumothorax. Heart: Unremarkable. Mediastinum: Unremarkable. Bones/joints: Unremarkable. IMPRESSION: No acute findings in the chest. Electronically signed by: Heladio King MD 06/03/2022 5:57 AM DATA ENTRY EMAIL PROCESSOR Due to temporary technical issues with the PACS/Fluency reporting system, reports are being signed by the in house radiologists without review as a courtesy to insure prompt reporting. The interpreting radiologist is fully responsible for the content of the report.
[2022-06-03 18:23] LABS: BUN Blood Urea Nitrogen 7 mg/dL (7-18); Glomerular Filtration Rate 112 ml/min (=/>90); Glucose Level 212 mg/dL (74-106); Potassium 4.2 mmol/L (3.5-5.1); Sodium Level 132 mmol/L (136-145)
[2022-06-03 18:56] LABS: Bicarbonate < 8 mmol/L (21-32)
[2022-06-03 22:14] LABS: BUN Blood Urea Nitrogen 5 mg/dL (7-18); Glomerular Filtration Rate 113 ml/min (=/>90); Glucose Level 206 mg/dL (74-106); Potassium 3.3 mmol/L (3.5-5.1); Sodium Level 133 mmol/L (136-145)
[2022-06-03 22:16] LABS: Bicarbonate < 8 mmol/L (21-32)
[2022-06-04] MEDS: NA CHLORIDE 0.9% 1,000 ML IV SCH ×2 (02:00→04:38)
[2022-06-04 02:11] LABS: BUN Blood Urea Nitrogen 4 mg/dL (7-18); Glomerular Filtration Rate 116 ml/min (=/>90); Glucose Level 217 mg/dL (74-106); Sodium Level 131 mmol/L (136-145)
[2022-06-04 02:12] LABS: Bicarbonate < 8 mmol/L (21-32)
[2022-06-04] MEDS ORDERED: NS KCL 20MEQ 20 MEQ/1,000 ML BAG IV SCH ×2 (04:00)
[2022-06-04 04:44] LABS: Absolute Lymphocytes (CBC) 0.5 K/uL (0.7-4.9); Hematocrit 35.2 % (36.0-45.0); Lymphocytes % 17.1 % (15.3-44.8); MCV 95.8 fL (80-100); MPV 7.5 fL (7.6-11.3); RBC Red Blood Cell Count 3.68 M/uL (3.86-4.86)
[2022-06-04 05:13] LABS: BUN Blood Urea Nitrogen 4 mg/dL (7-18); Glomerular Filtration Rate 116 ml/min (=/>90); Glucose Level 229 mg/dL (74-106); Lipase 386 U/L (73-393); Sodium Level 133 mmol/L (136-145)
[2022-06-04 05:19] LABS: Bicarbonate < 8 mmol/L (21-32); Phosphorus 0.8 mg/dL (2.5-4.9); Potassium 2.8 mmol/L (3.5-5.1)
[2022-06-04] MEDS ORDERED: POTASSIUM PHOS 40 MEQ in NA CHLORIDE 0.9% 500 ML IV ONE (05:24)
[2022-06-04] MEDS ORDERED: POTASSIUM PHOS 44 MEQ in NA CHLORIDE 0.9% 500 ML IV ONE (08:00)
[2022-06-04] MEDS: carvediloL 12.5 MG TAB PO SCH ×2 (08:23→20:52)
[2022-06-04] MEDS: CEFTRIAXONE 1,000 MG in NA CHLORIDE 0.9% 50 ML IVPB SCH (08:23)
[2022-06-04] MEDS: ENOXAPARIN 40 MG/0.4 ML SQ SCH (08:23)
[2022-06-04] MEDS: NA BICARB IV SCH ×9 (09:04→23:10)
[2022-06-04] MEDS: D5W IV SCH ×9 (09:04→23:10)
[2022-06-04] MEDS: POTASSIUM CL IV SCH ×9 (09:04→23:10)
--- NOTE | 2022-06-04 13:13 | P.PN ---
Subjective Date of Service: 06/04/22 Chief Complaint: Shortness of breath nausea and vomiting. Patient states she feels better today. She stated her shortness of breath has significantly improved. No recorded fever. Physical Examination - Vital Signs Temperature: 97 F Blood Pressure: 116/82 Pulse: 113 Respirations: 20 Pulse Ox (%): 100 - Physical Exam General: Alert, In no apparent distress, Oriented x3 HEENT: Mucous membr. moist/pink Neck: JVD not distended Respiratory: Clear to auscultation bilaterally, Normal air movement Cardiovascular: No edema, Other (Tachycardic, regular rhythm) Gastrointestinal: Normal bowel sounds, Soft and benign, Non-distended, No tenderness Musculoskeletal: No swelling, No tenderness Integumentary: No rashes, No cyanosis Neurological: Normal strength at 5/5 x4 extr - Studies Microbiology Data (last 24 hrs): 06/03/22 06:40 Blood - Blood Anaerobic Blood Culture - Final Assessment And Plan - Current Problems (Diagnosis) (1) DKA (diabetic ketoacidosis) Current Visit: Yes Status: Acute - Plan There has been no response and metabolic acidosis corrected on DKA treatment. Continue DKA protocol Continue insulin drip Aggressive IV hydration. Resume bicarb drip Monitor BMP according to DKA protocol. Keep n.p.o. ice chips Continue empiric IV Rocephin.
[2022-06-04 13:35] LABS: Potassium 2.6 mmol/L (3.5-5.1)
[2022-06-04] MEDS ORDERED: POTASSIUM CL 40 MEQ in NA CHLORIDE 0.9% 500 ML IV ONE (15:00)
[2022-06-04 17:11] LABS: Phosphorus 0.8 mg/dL (2.5-4.9)
[2022-06-04 17:13] LABS: Potassium 2.8 mmol/L (3.5-5.1)
--- NOTE | 2022-06-04 19:13 | P.PN ---
Date of Service: 06/05/22 Subjective: remains hypokalemic feels she is improving ,tolerated sips of water, no abd pain, no nausea/vomiting ROS: A complete review of systems was performed and is negative except as mentioned above Physical Exam: Gen: NAD, AOx3 HEENT: normal conjunctiva, sclera anicteric CV: regular rate & rhythm, no edema Pulm: non-labored respirations, clear bilaterally Abd: soft, non-tender, non-distended Neuro: normal speech, normal affect, moves all extremities vitals reviewed Problem List DKA h/o NIDDM2 Hypokalemia Hypophosphatemia Hypomagnesemia HTN GERD thrombocytopenia, acute lupud dermatitis metabolic acidosis with high anion gap secondary to DKA severe hypokalemia; insulin drip temporarily held after midnight 3, IV access was lost hypo Mg, and hypo PO4 as well nephrology consulted check urine studies continue insulin drip, IVF NPO with ice chips for now, until gap closed continue empiric IV rocephin electrolyte abnormalities secondary to DKA / insulin treatment replete phos, f/u labs thrombocytopenia plt downtrending since admission, h/o lupus VTE: lovenox held given downtrending plt Code: full Dispo: home, ~2 days Time Spent Managing Pts Care (In Minutes): 35
[2022-06-04 20:31] LABS: Bicarbonate 16 mmol/L (21-32); Glomerular Filtration Rate 117 ml/min (=/>90); Glucose Level 207 mg/dL (74-106); Sodium Level 136 mmol/L (136-145)
[2022-06-04] MEDS: ROSUVASTATIN 10 MG TAB PO SCH (20:52)
[2022-06-04 20:53] LABS: BUN Blood Urea Nitrogen < 3 mg/dL (7-18); Phosphorus < 0.5 mg/dL (2.5-4.9)
[2022-06-04 21:00] LABS: Potassium 2.6 mmol/L (3.5-5.1)
[2022-06-05 01:03] LABS: Bicarbonate 19 mmol/L (21-32); Glomerular Filtration Rate 119 ml/min (=/>90); Glucose Level 209 mg/dL (74-106); Sodium Level 135 mmol/L (136-145)
[2022-06-05 01:13] LABS: BUN Blood Urea Nitrogen < 3 mg/dL (7-18)
[2022-06-05 01:14] LABS: Potassium 2.2 mmol/L (3.5-5.1)
[2022-06-05] MEDS ORDERED: KCL 20 MEQ/100 mL IVPB 20 MEQ/100 ML BAG IV SCH (02:00)
[2022-06-05] MEDS ORDERED: POTASSIUM 25 MEQ EFFERV TAB PO ONE ×3 (02:38→17:00)
[2022-06-05 04:50] LABS: Absolute Lymphocytes (CBC) 0.6 K/uL (0.7-4.9); Hematocrit 29.5 % (36.0-45.0); Lymphocytes % 26.3 % (15.3-44.8); MCV 93.7 fL (80-100); MPV 7.6 fL (7.6-11.3); RBC Red Blood Cell Count 3.14 M/uL (3.86-4.86)
[2022-06-05 05:54] LABS: Bicarbonate 15 mmol/L (21-32); Glomerular Filtration Rate 123 ml/min (=/>90); Glucose Level 224 mg/dL (74-106); Sodium Level 135 mmol/L (136-145)
[2022-06-05 06:04] LABS: BUN Blood Urea Nitrogen < 3 mg/dL (7-18); Potassium 2.6 mmol/L (3.5-5.1)
[2022-06-05 06:05] LABS: Magnesium 1.4 mg/dL (1.6-2.4); Phosphorus 0.7 mg/dL (2.5-4.9)
[2022-06-05 06:28] LABS: Blood Morphology Comment NOT SEEN (NOT SEEN); Platelet Estimate DECR; White Blood Cell Scan OK (OK)
[2022-06-05] MEDS: NA BICARB IV SCH ×3 (07:12)
[2022-06-05] MEDS: POTASSIUM CL IV SCH ×7 (07:12→19:54)
[2022-06-05] MEDS: D5W IV SCH ×7 (07:12→19:54)
[2022-06-05 07:58] LABS: Glomerular Filtration Rate 117 ml/min (=/>90); Glucose Level 268 mg/dL (74-106); Sodium Level 135 mmol/L (136-145)
[2022-06-05 07:59] LABS: BUN Blood Urea Nitrogen < 3 mg/dL (7-18)
[2022-06-05 08:01] LABS: Bicarbonate 14 mmol/L (21-32)
[2022-06-05 08:02] LABS: Potassium 2.6 mmol/L (3.5-5.1)
[2022-06-05] MEDS ORDERED: MAGNESIUM OXIDE 400 MG TAB PO ONE (08:09)
[2022-06-05] MEDS: ENOXAPARIN 40 MG/0.4 ML SQ SCH ×2 (08:28→08:31)
[2022-06-05] MEDS: carvediloL 12.5 MG TAB PO SCH ×2 (08:29→19:54)
[2022-06-05] MEDS ORDERED: MAGNESIUM 50% 3 GM in NA CHLORIDE 0.9% 100 ML IV ONE (09:31)
[2022-06-05] MEDS: CEFTRIAXONE 1,000 MG in NA CHLORIDE 0.9% 50 ML IVPB SCH (09:43)
[2022-06-05] MEDS ORDERED: D5W 1,000 ML IV SCH (10:00)
[2022-06-05] MEDS ORDERED: POTASSIUM 25 MEQ EFFERV TAB PO SCH (10:30)
[2022-06-05 12:41] LABS: Bicarbonate 16 mmol/L (21-32); Glomerular Filtration Rate 119 ml/min (=/>90); Glucose Level 234 mg/dL (74-106); Sodium Level 136 mmol/L (136-145)
[2022-06-05 12:50] LABS: BUN Blood Urea Nitrogen < 3 mg/dL (7-18); Potassium 2.9 mmol/L (3.5-5.1)
[2022-06-05 13:00] LABS: UR PROTEIN 81.4 mg/dL (<11.9); Urine Protein/Creatinine Ratio 2.09 ratio (<0.15)
--- NOTE | 2022-06-05 13:19 | CON ---
Date of Consultation: 06/05/2022 Reason For Consultation: Electrolyte imbalance, hypokalemia, hypomagnesemia, acidosis. History Of Present Illness: This is a pleasant of 41-year-old female with significant past medical h istory of diabetes, diagnosis 1 year back, on metformin, skin lupus dermatitis without any treatment, the patient came to the hospital complaining from nausea and vomiting, diarrhea for the last 2 weeks , resolved, fatigue. For that reason, reported to the hospital. When arrived to the hospital, the p atient found to be in DKA with severe hypokalemia. For that reason, we have been consulted. The pat maged apparently has difficulty establishing peripheral line. The patient denied taking any herbal. Denied taking any liquor. The patient denied taking any other supplement. Reviewing her home medica tions, the patient has been on Levaquin, ciprofloxacin, and metronidazole with metformin. Past Medical History: Includes; 1.Lupus dermatitis. 2.GERD. 3.Hypertension. 4.Diabetes. Past Surgical History: Negative. Allergies: TO IODINE, BACTRIM. Home Medications: Include esomeprazole, Flonase, carvedilol, calcium carbonate, ciprofloxacin, metro nidazole. Family History: Positive for diabetes. Social History: Active smoker, active alcohol. Denied drugs abuse. Review of Systems: Head and Neck: No red eye. No ear pain. GI: Has nausea. Has diarrhea. : No polyuria. No dysuria. No hematuria. Instructional Developer: No vaginal discharge. Respiratory: No shortness of breath. Cardiovascular: No chest pain. Endocrine: No polydipsia. Skin: No rash. Neuro: Has neuropathy. Musculoskeletal: No joint pain. Physical Examination: Vital Signs: Blood pressure 100/52, pulse of 88. Chest: Clear to auscultation. Heart: S1, S2. Systolic murmur. Abdomen: Soft, nontender. Extremity: No edema. Neurologic: Alert. No focality. Laboratory Data: WBC 2.5, H and H 10.7/29.5, platelet 85. Sodium 135, potassium 2.6, bicarb 14, BUN less than 3, creatinine 0.5, calcium 7.6, albumin 3.9. Urinalysis; specific gravity more than 1.030 , positive for ketone, +3 protein. Current Medications: The patient on include carvedilol, rosuvastatin, Zofran, D5. Assessment And Plan: 1.Acidosis, high anion gap metabolic acidosis secondary to diabetic ketoacidosis with the presence o f severe hypokalemia. I am going to continue on the insulin drip. There is no significant hyperkale li. No change in mental status. I do not see any need to start any bicarb drip even though to avoi d worsening of her hypokalemia and we will continue insulin drip and we will follow up. 2.Hypokalemia. The patient does not have any peripheral access. We will change IV fluids as could not tolerate IV KCl. We will add to the D5 only 10 and we will follow up. I am going to replace 160 mEq of KCl currently and we will repeat the lab in 2 hours. Given the history of lupus dermatitis a nd the finding of pancytopenia, I am going to send for urine electrolytes to evaluate if the patient has any Fanconi and to calculate transtubular potassium gradient. We will replenish magnesium also. 3.Hypomagnesemia. We will supplement. 4.Thrombocytopenia/pancytopenia with the presence of lupus dermatitis. I am going to send for the t iter and we will follow up. 5.Diabetes with the presence of diabetic ketoacidosis. The patient is going to need to be continue on insulin as outpatient. We will hold on the metformin for the time being. AMY Voice ID: [id number] Report ID: [id number]
--- NOTE | 2022-06-05 14:34 | EKG ---
Test Date: 2022-06-03 Test Time: 07:23:45 Medical Attendant: STORM MEASUREMENT RESULTS: Intervals: Rate: 92 NE: 126 QRSD: 72 QT: 410 QTc: 507 [place]: P: 35 NE: 126 QRS: 27 T: -1 INTERPRETIVE STATEMENTS: Sinus rhythm with occasional premature ventricular complexes Prolonged QT Abnormal ECG No previous ECG available for comparison Electronically Signed On 06-05-22 14:32:18 BACKEND JAVA DEVELOPER by Jonathan Bustillos
[2022-06-05 15:18] LABS: Bicarbonate 19 mmol/L (21-32); Glomerular Filtration Rate 120 ml/min (=/>90); Glucose Level 243 mg/dL (74-106); Potassium 3.8 mmol/L (3.5-5.1); Sodium Level 134 mmol/L (136-145)
[2022-06-05 15:19] LABS: BUN Blood Urea Nitrogen < 3 mg/dL (7-18)
[2022-06-05 15:38] LABS: Magnesium 2.6 mg/dL (1.6-2.4)
[2022-06-05 15:41] LABS: Phosphorus < 0.5 mg/dL (2.5-4.9)
[2022-06-05 17:05] LABS: Bicarbonate 18 mmol/L (21-32); Glomerular Filtration Rate 121 ml/min (=/>90); Glucose Level 233 mg/dL (74-106); Potassium 3.2 mmol/L (3.5-5.1); Sodium Level 134 mmol/L (136-145)
[2022-06-05 17:06] LABS: BUN Blood Urea Nitrogen < 3 mg/dL (7-18)
[2022-06-05] MEDS: ROSUVASTATIN 10 MG TAB PO SCH (19:54)
[2022-06-05] MEDS: POTASS/SODIUM PHOSPHATE 1 PKT POWD.PACK PO SCH ×3 (19:54→22:21)
[2022-06-05 20:43] LABS: Bicarbonate 23 mmol/L (21-32); Glomerular Filtration Rate 125 ml/min (=/>90); Glucose Level 212 mg/dL (74-106); Potassium 4.9 mmol/L (3.5-5.1); Sodium Level 132 mmol/L (136-145)
[2022-06-05 20:45] LABS: BUN Blood Urea Nitrogen < 3 mg/dL (7-18)
[2022-06-05] MEDS ORDERED: GLUCAGON 1 MG/VIAL IM PRN (21:07)
[2022-06-05] MEDS ORDERED: D50W 25 GM/50 ML SYRINGE IV PRN (21:07)
[2022-06-05] MEDS: NA CHLORIDE 0.9% 1,000 ML IV SCH (21:14)
[2022-06-06 00:38] LABS: Bicarbonate 19 mmol/L (21-32); Glomerular Filtration Rate 127 ml/min (=/>90); Glucose Level 257 mg/dL (74-106); Potassium 4.4 mmol/L (3.5-5.1); Sodium Level 134 mmol/L (136-145)
[2022-06-06 00:43] LABS: BUN Blood Urea Nitrogen < 3 mg/dL (7-18)
[2022-06-06] MEDS: INSULIN -REGULAR HUMAN 50 UNIT/0.5 ML ML SQ SCH ×5 (00:56→20:39)
[2022-06-06 05:14] LABS: Absolute Lymphocytes (CBC) 0.8 K/uL (0.7-4.9); Hematocrit 29.7 % (36.0-45.0); Lymphocytes % 23.3 % (15.3-44.8); MCV 94.7 fL (80-100); MPV 7.5 fL (7.6-11.3); RBC Red Blood Cell Count 3.13 M/uL (3.86-4.86)
[2022-06-06 05:37] LABS: ALT/SGPT 15 U/L (13-56); AST/SGOT 19 U/L (15-37); Albumin 2.8 g/dL (3.4-5.0); Alkaline Phosphatase 91 U/L (45-117); Bicarbonate 22 mmol/L (21-32); Bilirubin Total 0.6 mg/dL (0.2-1.0); Glomerular Filtration Rate 125 ml/min (=/>90); Glucose Level 214 mg/dL (74-106); Lipase 262 U/L (73-393); Magnesium 2.3 mg/dL (1.6-2.4); Potassium 3.6 mmol/L (3.5-5.1); Protein, Total 6.3 g/dL (6.4-8.2); Sodium Level 136 mmol/L (136-145)
[2022-06-06 05:38] LABS: BUN Blood Urea Nitrogen < 3 mg/dL (7-18); Phosphorus 0.7 mg/dL (2.5-4.9)
--- NOTE | 2022-06-06 06:35 | P.PN ---
Date of Service: 06/06/22 Subjective: improving no new/worsening symptoms tolerating PO ROS: A complete review of systems was performed and is negative except as mentioned above Physical Exam: Gen: NAD, AOx3 HEENT: normal conjunctiva, sclera anicteric CV: regular rate & rhythm, no edema Pulm: non-labored respirations, clear bilaterally Abd: soft, non-tender, non-distended vitals reviewed Problem List DKA h/o NIDDM2 Hypokalemia Hypophosphatemia Hypomagnesemia HTN GERD thrombocytopenia, acute lupud dermatitis metabolic acidosis with high anion gap secondary to DKA severe hypokalemia; insulin drip temporarily held after midnight 06/05, IV access was lost hypo Mg, and hypo PO4 as well nephrology consulted gap closed 06/06, advanced diet, transitioned to insulin SQ continue empiric IV rocephin electrolyte abnormalities secondary to DKA / insulin treatment replete phos, f/u labs should correct as patient's PO intake improves thrombocytopenia plt downtrending since admission, h/o lupus VTE: lovenox Code: full Dispo: home, likely tomorrow ok to transfer out of ICU today Time Spent Managing Pts Care (In Minutes): 25
[2022-06-06] MEDS ORDERED: INSULIN 70/30 100 UNITS/ML SQ SCH (07:30)
[2022-06-06] MEDS: carvediloL 12.5 MG TAB PO SCH ×2 (07:55→20:39)
[2022-06-06] MEDS: ENOXAPARIN 40 MG/0.4 ML SQ SCH (07:56)
[2022-06-06] MEDS ORDERED: POTASSIUM 25 MEQ EFFERV TAB PO ONE ×2 (08:00→17:00)
[2022-06-06] MEDS ORDERED: POTASS/SODIUM PHOSPHATE 1 PKT POWD.PACK PO ONE (09:00)
[2022-06-06] MEDS: POTASS/SODIUM PHOSPHATE 1 PKT POWD.PACK PO SCH ×2 (11:44→13:20)
[2022-06-06] MEDS: NA CHLORIDE 0.9% 1,000 ML IV SCH (11:46)
--- NOTE | 2022-06-06 12:56 | PN ---
Date of Progress Note: 06/06/2022 Subjective: Patient was admitted with DKA, hypokalemia, and severe acidosis with hypomagnesemia. [place] could not tolerate IV. Patient was managed on the oral. Patient today is feeling better. Physical Examination: Vital Signs: Blood pressure 100/69, pulse of 78. Chest: Clear to auscultation. Heart: S1, S2 regular. Abdomen: Soft, nontender. Extremities: No edema. Neurologic: Alert. Nonfocal. Laboratory Data: Hemoglobin 10.4. Sodium 136, potassium 3.6, bicarb 22, BUN less than 3, creatinine 0.4, calcium 8.3. Phosphorus 0.7, magnesium 2.3. Albumin 2.8. Corrected calcium is 9.1. Current Medications: The patient on include: 1.Lovenox. 2.Carvedilol. 3.Atorvastatin. 4.Insulin. 5.Normal saline at 100 per hour. Assessment And Plan: 1.Acidosis, high anion gap, metabolic acidosis secondary to diabetic ketoacidosis, recovered, resolv ed. I am going to go ahead and discontinue IV fluid. 2.Hypokalemia, hypomagnesemia, hypophosphatemia. We will continue aggressive replenishment. Workup was done and patient did not show any salt wasting, but did show significant proteinuria. I am ramirez g to start the patient on low dose of ARB and we will follow up. 3.Diabetes nephropathy with proteinuria as above. We will start the patient on lisinopril. 4.Lupus dermatitis. Serology is still pending. Patient is stable. No sign currently. We will follow up. Patient is cleared from the renal standpoint for discharge planning. KAN/LICHA Voice ID: [id number] Report ID: [id number]
[2022-06-06] MEDS: ROSUVASTATIN 10 MG TAB PO SCH (20:39)
[2022-06-06] MEDS ORDERED: INSULIN GLARGINE 100 UNIT/ML SQ SCH (21:07)
[2022-06-06 23:06] VITALS: O2SAT 100
[2022-06-07 03:38] LABS: Hematocrit 28.3 % (36.0-45.0); MCV 94.1 fL (80-100); MPV 7.8 fL (7.6-11.3)
[2022-06-07 03:51] LABS: Bicarbonate 21 mmol/L (21-32); Glomerular Filtration Rate 135 ml/min (=/>90); Glucose Level 237 mg/dL (74-106); Magnesium 1.7 mg/dL (1.6-2.4); Phosphorus 1.6 mg/dL (2.5-4.9); Potassium 3.2 mmol/L (3.5-5.1); Sodium Level 136 mmol/L (136-145)
[2022-06-07 03:53] LABS: BUN Blood Urea Nitrogen < 3 mg/dL (7-18)
[2022-06-07] MEDS ORDERED: INSULIN 70/30 100 UNITS/ML SQ SCH (07:30)
[2022-06-07] MEDS ORDERED: POTASSIUM 25 MEQ EFFERV TAB PO ONE (08:00)
[2022-06-07] MEDS ORDERED: POTASS/SODIUM PHOSPHATE 1 PKT POWD.PACK PO SCH (08:00)
[2022-06-07] MEDS ORDERED: MAGNESIUM SULFATE 1 gm IVPB 1 GM/100 ML BAG IV ONE (08:00)
[2022-06-07] MEDS ORDERED: lisinopriL 5 MG TAB PO SCH (09:00)
[2022-06-07] MEDS: INSULIN -REGULAR HUMAN 50 UNIT/0.5 ML ML SQ SCH (10:38)
[2022-06-07] MEDS: carvediloL 12.5 MG TAB PO SCH (10:41)
[2022-06-07 12:34] VITALS: BP 118/81; TEMP 97.8
--- NOTE | 2022-06-07 22:38 | P.DS ---
Admission Date: 06/03/22 Discharge Date: 06/07/22 Disposition: ROUTINE DISCHARGE Discharge Condition: GOOD Reason for Admission: Shortness of breath, nausea and vomiting. Consultations: Nephrology - Dr. Rasmussen Brief History of Present Illness: 41-year-old man with a history of non-insulin diabetes on metformin presented to the emergency department with a complaint of nausea and vomiting and shortness o f breath of 1 day duration. Patient denied any fever or diarrhea or fever. She also denied any cough or chest pain. blood work in the ED consistent with DKA with hyperglycemia, low bicarb and high anion gap. DKA protocol initiated in the ED and patient started on insulin drip and IV fluids. Patient admitted for further management. Hospital Course: Problem List DKA h/o NIDDM2 Hypokalemia, Hypophosphatemia, Hypomagnesemia HTN GERD thrombocytopenia, acute lupus dermatitis Patient presented with DKA, A1c: 10. Treated with IV insulin drip and IV fluids. She improved. IV insulin transitioned to SQ insulin 70/30. Diet was advanced and she was feeling much better. Deemed stable for discharge home. Insulin 70/30 20 units BID discussed monitoring blood glucose levels at home, keep record and f/u with PCP in ~ 1week reviewed increased dose by 2units of insulin if fasting glc > 200 Continue metformin diabetic diet education added lisinopril 2.5mg for HTN and renal protection Vital Signs/Physical Exam: Temp Pulse Resp BP Pulse Ox 97.8 F 90 18 118/81 100 06/07/22 12:00 06/07/22 12:00 06/07/22 12:00 06/07/22 12:00 06/07/22 12:00 General: Alert, In no apparent distress, Oriented x3 HEENT: EOMI, Sclerae nonicteric Neck: Supple, No LAD Respiratory: Clear to auscultation bilaterally, Normal air movement Cardiovascular: No edema, Regular rate/rhythm Gastrointestinal: Soft and benign, Non-distended, No tenderness Musculoskeletal: No contractures, No tenderness Integumentary: No rashes, No significant lesion Neurological: Normal speech, Normal strength at 5/5 x4 extr, Normal affect Laboratory Data at Discharge: WBC 3.20 K/uL (4.3-10.9) L 06/07/22 02:59 Hgb 10.1 g/dL (12.0-15.0) L 06/07/22 02:59 Hct 28.3 % (36.0-45.0) L 06/07/22 02:59 Plt Count 102 K/uL (152-406) L 06/07/22 02:59 PT 9.9 SECONDS (9.5-12.5) 06/03/22 05:57 INR 0.90 06/03/22 05:57 Sodium 136 mmol/L (136-145) 06/07/22 02:59 Potassium Cancelled 06/07/22 14:00 BUN < 3 mg/dL (7-18) L 06/07/22 02:59 Creatinine 0.32 mg/dL (0.55-1.02) L 06/07/22 02:59 Glucose 237 mg/dL (74-106) H 06/07/22 02:59 Phosphorus 1.6 mg/dL (2.5-4.9) L 06/07/22 02:59 Magnesium 1.7 mg/dL (1.6-2.4) 06/07/22 02:59 Total Bilirubin 0.6 mg/dL (0.2-1.0) 06/06/22 05:00 AST 19 U/L (15-37) 06/06/22 05:00 ALT 15 U/L (13-56) 06/06/22 05:00 Alkaline Phosphatase 91 U/L (45-117) 06/06/22 05:00 Lipase 262 U/L (73-393) 06/06/22 05:00 Home Medications: Esomeprazole Mag Trihydrate [Nexium] 20 mg PO DAILY 12/17/18 carvediloL [Coreg*] 25 mg PO BID 12/17/18 Metformin HCl [Glucophage*] 1 tab PO DAILY 06/03/22 Rosuvastatin [Crestor*] 10 mg PO BEDTIME 06/03/22 Insulin 70/30 NPH/Reg Human [Novolin 70/30*] 20 unit SQ BIDAC 30 Days #20 ml 06/07/22 Lisinopril [Zestril] 2.5 mg PO DAILY 30 Days #30 tab 06/07/22 Potassium Chloride [K-Tab ER] 20 meq PO DAILY 10 Days #10 tab 06/07/22 New Medications: Potassium Chloride [K-Tab ER] 20 meq PO DAILY 10 Days #10 tab Insulin 70/30 NPH/Reg Human [Novolin 70/30*] 20 unit SQ BIDAC 30 Days #20 ml Lisinopril [Zestril] 2.5 mg PO DAILY 30 Days #30 tab Followup: Unknown,U [Primary Care Provider] - (follow up with you family doctor) Time spent managing pt's care (in minutes): 45
== END 2022-06-07 12:14 | disposition home or self-care (01) | DRG 638 ==
LOC: ER 05:26 → ERHOLD 09:15 → 3RD-ICU 19:43 → 2ND 06-06 15:30
PROVIDERS: ADMIT Internal Medicine; ATTEND Hospitalist
DX: E11.10 Type 2 diabetes mellitus with ketoacidosis without coma (principal); D61.818 Other pancytopenia; I10 Essential (primary) hypertension; E86.0 Dehydration; E83.42 Hypomagnesemia; M32.9 Systemic lupus erythematosus, unspecified; E83.39 Other disorders of phosphorus metabolism; E11.21 Type 2 diabetes mellitus with diabetic nephropathy; L30.8 Other specified dermatitis; E87.6 Hypokalemia; K21.9 Gastro-esophageal reflux disease without esophagitis; F17.210 Nicotine dependence, cigarettes, uncomplicated; Z88.1 Allergy status to other antibiotic agents; Z88.8 Allergy status to other drugs, medicaments and biological substances; Z79.84 Long term (current) use of oral hypoglycemic drugs; Z79.899 Other long term (current) drug therapy; Z20.822 Contact with and (suspected) exposure to COVID-19
CPT/HCPCS: 0240U; 36415; 71045; 80048; 80053; 80076; 81003; 82435; 82570; 82947; 83036; 83605; 83690; 83735; 83880; 83935; 84100; 84132; 84156; 84300; 84484; 84703; 85025; 85027; 85379; 85610; 87040; 93005; 93970; 99285; J1650; J1815; J3475; J3480; J7030; J7040